=== PATIENT | male | born 1955 | race Caucasian/White ===

== ENCOUNTER 2022-02-25 13:42 | Observation (INO) ==
[2022-02-25 14:42] LABS: Basophils # (auto) 0.05 K/uL (0-0.2); Basophils % (auto) 0.7 %; Eosinophils # (auto) 0.06 K/uL (0-0.50); Eosinophils % (auto) 0.8 %; Hematocrit (blood only) 38.8 % (40.1-51.0); Hemoglobin 13.1 g/dl (14.0-18.0); Immature Granulocytes # (auto) 0.02 K/uL (0.00-0.02); Immature Granulocytes % (auto) 0.3 %; Lymphocytes # (auto) 2.31 K/uL (1.2-3.4); Lymphocytes % (auto) 32.4 %; Mean Corpuscular Hemoglobin 30.8 pg (25.0-34.0); Mean Corpuscular Hgb Conc 33.8 g/dL (32.0-36.0); Mean Corpuscular Volume 91.3 fL (80.0-100.0); Mean Platelet Volume 9.2 fL (9.4-12.4); Monocytes # (auto) 0.66 K/uL (0.24-0.82); Monocytes % (auto) 9.3 %; Neutrophils # (auto) 4.03 K/uL (1.4-6.5); Neutrophils % (auto) 56.5 %; Platelet Count 271 K/uL (130-400); RDW Coefficient of Variation 12.8 % (11.5-14.5); RDW Standard Deviation 42.4 fL (36.4-46.3); Red Blood Count 4.25 M/uL (4.63-6.08); White Blood Count 7.13 K/ul (4.8-10.8)
[2022-02-25 15:02] LABS: Troponin I High Sensitivity 3.9 pg/ml (0-20)
[2022-02-25 15:19] LABS: Albumin Globulin Ratio 1.6 (0.9-2); Albumin Level 4.6 gm/dl (3.4-5.0); BUN Creatinine Ratio 19.5 (10-20); Bilirubin,Total 0.6 mg/dl (0.2-1.0); Calcium 9.6 mg/dl (8.5-10.1); Creatinine Clr Calc Pharmacy 56.4 ml/min; Est GFR (Non-African American) 60.4 ml/min; Globulin 2.9 gm/dl (2.5-4.0); Magnesium 2.1 mg/dl (1.7-2.4); Potassium 3.8 mmol/L (3.5-5.1); Total Protein 7.5 gm/dl (6.0-8.3)
[2022-02-25 15:29] LABS: Influenza A virus by PCR Negative (Neg); Influenza B virus by PCR Negative (Neg); RSV by PCR Negative (Neg); SARS CoV2 RNA(COVID-19) InHosp NEGATIVE (Negative)
--- NOTE | 2022-02-25 16:27 | XRay Report ---
XR chest 1V portable HISTORY: Tachycardia. Atypical COMPARISON: Chest 03/19/2015. FINDINGS: The lungs are clear. Cardiac silhouette is normal in size. No pleural effusions. No pneumot horax. IMPRESSION: No acute process. ACT 112: Negative or not required by law. Electronically signed by: Scottie Sylvester M.D. 02/25/2022 4:26 PM
--- NOTE | 2022-02-25 18:48 | Emergency Department Note ---
Impression & Plan Tachyarrhythmia, Acute hypotension, Retrosternal chest pain ED Provider Note INFORMANT: Patient ED PROVIDER(S): Refugio De Leon MD CHIEF COMPLAINT: Chest pain PLAN: Disposition: Admitted Condition: None Outpatient prescription management: none Referral: None MEDICAL DECISION MAKING: Patient presented emergency department and he was noted to have a heart rate between 180 and 190 in triage. He also had blood pressure in the 80s. He was taken immediately back to the resuscitation bay. In the process of being hooked up to the cafeteria monitor as well as an ECG and IV was started. The patient was noted to spontaneously break into a sinus rhythm. Nursing noted that it appeared to be narrow complex but no recorded strips were obtained. The patient's chest discomfort resolved and his blood pressure returned to the normal range. I did evaluate the patient and he was feeling much better. His ECG did show a sinus rhythm. His CBC and chemistry panel along with troponin were unremarkable except for a minimal elevation of glucose. I did discuss the case with Dr. Phillips of cardiology. He felt the patient would warrant a cardiac evaluation and rule out in the hospital overnight. [facility] The patient was evaluated by the team the ER and admitted for further management. Triage Nursing notes reviewed and agree them. Vital Signs: reviewed and remarkable for tachycardia Differential diagnosis: Premature contractions, electrolyte abnormality, cardiac dysrhythmia, thyroid dysfunction, pulmonary embolism, infection, gastrointestinal, as well as other pathologies. Diagnostics interpreted by me: ECG: Lead ECG reveals sinus rhythm with sinus arrhythmia and PVCs at 81 bpm. Incomplete right bundle block block. No ST elevation or depression. Cardiac Monitoring: Cardiac monitoring ordered by me: The patient was placed on continuous cardiac monitoring and observed. It revealed a normal sinus rhythm at 84 beats per minute without ectopy or evidence of dysrhythmia. Imaging studies: Chest x-ray. Findings: A chest x-ray was performed and revealed no pneumothorax, effusion, infiltrate, pulmonary edema, free air under the diaphragm, or wide mediastinum. Impression: No acute disease. HPI: The patient is a 66 year old male who presents to the Emergency Room with complaints of chest pain. This started about an hour ago and is persisting. The patient also notes the following associated symptoms, tachycardia. The patient has taken no medication for relieving factors. Current pain is rated as 3/10. Patient notes 2 or 3 episodes in the past 2 years of tachycardia that resolved on their own. He states this episode was not resolving and he came to the ER for further management. States he was in good health this morning. Pt denies LOC, headache, fevers, chills, diaphoresis, visual changes, neck pain, breathing difficulties, nausea, vomiting, abdominal pain, back pain, melena, hematochezia, urinary symptoms, numbness, weakness, lymphadenopathy, rash, or other complaints. ROS: See above HPI for pertinent positives & negatives. A total of 10 systems reviewed and were otherwise negative. PAST MEDICAL HISTORY:See Below , Parkinson's PAST SURGICAL HISTORY:See Below, FAMILY HISTORY:See Below SOCIAL HISTORY:See Below, HOME MEDICATIONS:See Below ALLERGIES:See Below VITALS:See Below PHYSICAL EXAMINATION: GENERAL: Awake, alert, well-appearing, in no distress HENT: Normocephalic, atraumatic. Oropharynx unremarkable. EYES: Normal conjunctiva. Sclera non-icteric. NECK: Inspection normal. Non-tender. Supple. No nuchal rigidity. FROM. No masses. RESPIRATORY: Clear to auscultation. No wheezes. No rales. Normal respiratory effort. CARDIAC: Normal rate. Normal rhythm. No murmurs. No rubs. Extremities warm and well perfused. Pulses equal. No JVD. GI: Soft, non-distended. No tenderness to palpation. No rebound or guarding. No masses. RECTAL: Deferred. MUSCULOSKELETAL: Atraumatic. Chest examination reveals no tenderness. The back is symmetrical on inspection without obvious abnormality. There is no CVA tenderness to palpation. No joint edema. LOWER EXTREMITIES: Calves are equal size bilaterally and non-tender. No edema. No discoloration. NEURO: Normal sensorium. No sensory or motor deficits noted. SKIN: No rash or jaundice noted. Refugio De Leon MD Past Med/Surg History Medical History (Updated 02/25/22 @ 19:16 by Loren Herrera PA-C) Parkinson disease Surgical History (Updated 02/25/22 @ 19:03 by Loren Herrera PA-C) History of colonoscopy History of total knee arthroplasty bilateral Family History (Updated 02/25/22 @ 19:04 by Loren Herrera PA-C) Sister Von Willebrand disease Social History (Updated 02/25/22 @ 19:05 by Loren Herrera PA-C) Smoking Status: Never smoker Hx Alcohol Use: No Hx Substance Use: No Preferred Language: Uzbek Communication Ability: Effective Conical Mixer Required: No Current Living Situation: Spouse Feels Safe at Home: Yes Assistive Devices: None Allergies Allergies Allergy/AdvReac Type Severity Reaction Status Date / Time bee venom protein (honey bee) Allergy Unknown SWELLING Verified 04/20/16 10:40 No Known Drug Allergies Allergy Unknown NKDA Verified 04/20/16 10:40 Home Meds Home Medications Medication Instructions Recorded Confirmed carbidopa 25 mg-levodopa 100 1 tab PO TID 02/25/22 02/25/22 mg-entacapone 200 mg tablet cholecalciferol (vitamin D3) 50 2,000 unit PO DAILY 02/25/22 02/25/22 mcg (2,000 unit) capsule (Vitamin D3) magnesium oxide 400 mg PO DAILY 02/25/22 02/25/22 rasagiline 1 mg tablet 1 mg PO DAILY 02/25/22 02/25/22 riboflavin (vitamin B2) 400 mg 400 mg PO DAILY 02/25/22 02/25/22 tablet Results & Data (ED) Vital Signs Vital Signs - 24 hr 02/25/22 13:42 02/25/22 13:53 02/25/22 13:54 Temperature 36.8 C Temperature Source Temporal Artery Scan Pulse Rate 197 H Pulse Rate [Apical] 94 H Pulse Rhythm [Apical] Pulse Strength [Apical] Respiratory Rate 20 22 Respiratory Effort / Characteristics Non-Labored Respiratory Depth Normal Respiratory Pattern Blood Pressure 77/56 L Blood Pressure [Left Arm] 157/94 H Blood Pressure Mean 63 Blood Pressure Mean [Left Arm] 115 Pulse Oximetry 98 98 99 Oxygen Delivery Method Room Air Room Air Room Air Sepsis Recent Fever Within 48 Hours No Sepsis New/Unexplained Change in Mental Status N/A Sepsis Action Taken by Nursing No Action Required 02/25/22 14:14 02/25/22 16:00 02/25/22 17:42 Temperature Temperature Source Pulse Rate Pulse Rate [Apical] 96 H 85 60 Pulse Rhythm [Apical] Regular Pulse Strength [Apical] Normal Respiratory Rate 17 18 16 Respiratory Effort / Characteristics Non-Labored Non-Labored Non-Labored Respiratory Depth Normal Normal Respiratory Pattern Regular Regular Blood Pressure Blood Pressure [Left Arm] 119/75 118/76 128/74 Blood Pressure Mean Blood Pressure Mean [Left Arm] 89 90 92 Pulse Oximetry 100 98 100 Oxygen Delivery Method Room Air Room Air Room Air Sepsis Recent Fever Within 48 Hours Sepsis New/Unexplained Change in Mental Status Sepsis Action Taken by Nursing Laboratory Data Result diagrams: 02/25/22 14:00 02/25/22 14:00 Lab Results 02/25/22 02/25/22 02/25/22 Range/Units 14:00 14:00 14:00 WBC 7.13 (4.8-10.8) K/ul RBC 4.25 L (4.63-6.08) M/uL Hgb 13.1 L (14.0-18.0) g/dl Hct 38.8 L (40.1-51.0) % MCV 91.3 (80.0-100.0) fL MCH 30.8 (25.0-34.0) pg MCHC 33.8 (32.0-36.0) g/dL RDW Std Deviation 42.4 (36.4-46.3) fL RDW Coeff of Najma 12.8 (11.5-14.5) % Plt Count 271 (130-400) K/uL MPV 9.2 L (9.4-12.4) fL Immature Gran % (Auto) 0.3 % Neut % (Auto) 56.5 % Lymph % (Auto) 32.4 % Hardin % (Auto) 9.3 % Eos % (Auto) 0.8 % Baso % (Auto) 0.7 % Neut # (Auto) 4.03 (1.4-6.5) K/uL Lymph # (Auto) 2.31 (1.2-3.4) K/uL Hardin # (Auto) 0.66 (0.24-0.82) K/uL Eos # (Auto) 0.06 (0-0.50) K/uL Baso # (Auto) 0.05 (0-0.2) K/uL Immature Gran # (Auto) 0.02 (0.00-0.02) K/uL Sodium 137 (136-145) mmol/L Potassium 3.8 (3.5-5.1) mmol/L Chloride 101 (98-107) mmol/L Carbon Dioxide 27 (21-32) mmol/L Anion Gap 9 (3-11) BUN 24 H (6-23) mg/dl Creatinine 1.23 (0.6-1.4) mg/dl Est Cr Clr Drug Dosing 56.4 ml/min Est GFR ( Amer) 70.0 ml/min Est GFR (Non-Af Amer) 60.4 ml/min BUN/Creatinine Ratio 19.5 (10-20) Glucose 201 H (70-99(Fasting)) mg/dl Calcium 9.6 (8.5-10.1) mg/dl Magnesium 2.1 (1.7-2.4) mg/dl Total Bilirubin 0.6 (0.2-1.0) mg/dl AST 26 (13-39) U/L ALT 5 L (7-52) U/L Alkaline Phosphatase 126 H (34-104) U/L Troponin I High Sens 3.9 (0-20) pg/ml Total Protein 7.5 (6.0-8.3) gm/dl Albumin 4.6 (3.4-5.0) gm/dl Globulin 2.9 (2.5-4.0) gm/dl Albumin/Globulin Ratio 1.6 (0.9-2) TSH 3.698 (0.300-4.500) uIu/ml SARS-CoV-2 (PCR) (Negative) Influenza Type A (PCR) (Neg) Influenza Type B (PCR) (Neg) RSV (RT-PCR) (Neg) 02/25/22 Range/Units 14:28 WBC (4.8-10.8) K/ul RBC (4.63-6.08) M/uL Hgb (14.0-18.0) g/dl Hct (40.1-51.0) % MCV (80.0-100.0) fL MCH (25.0-34.0) pg MCHC (32.0-36.0) g/dL RDW Std Deviation (36.4-46.3) fL RDW Coeff of Najma (11.5-14.5) % Plt Count (130-400) K/uL MPV (9.4-12.4) fL Immature Gran % (Auto) % Neut % (Auto) % Lymph % (Auto) % Hardin % (Auto) % Eos % (Auto) % Baso % (Auto) % Neut # (Auto) (1.4-6.5) K/uL Lymph # (Auto) (1.2-3.4) K/uL Hardin # (Auto) (0.24-0.82) K/uL Eos # (Auto) (0-0.50) K/uL Baso # (Auto) (0-0.2) K/uL Immature Gran # (Auto) (0.00-0.02) K/uL Sodium (136-145) mmol/L Potassium (3.5-5.1) mmol/L Chloride (98-107) mmol/L Carbon Dioxide (21-32) mmol/L Anion Gap (3-11) BUN (6-23) mg/dl Creatinine (0.6-1.4) mg/dl Est Cr Clr Drug Dosing ml/min Est GFR ( Amer) ml/min Est GFR (Non-Af Amer) ml/min BUN/Creatinine Ratio (10-20) Glucose (70-99(Fasting)) mg/dl Calcium (8.5-10.1) mg/dl Magnesium (1.7-2.4) mg/dl Total Bilirubin (0.2-1.0) mg/dl AST (13-39) U/L ALT (7-52) U/L Alkaline Phosphatase (34-104) U/L Troponin I High Sens (0-20) pg/ml Total Protein (6.0-8.3) gm/dl Albumin (3.4-5.0) gm/dl Globulin (2.5-4.0) gm/dl Albumin/Globulin Ratio (0.9-2) TSH (0.300-4.500) uIu/ml SARS-CoV-2 (PCR) NEGATIVE (Negative) Influenza Type A (PCR) Negative (Neg) Influenza Type B (PCR) Negative (Neg) RSV (RT-PCR) Negative (Neg) Administered Medications Discontinued Medications Potassium Chloride (Potassium Chloride Crtab 20 Meq Tabcr) 20 meq PO NOW STA Stop: 02/25/22 18:59 Last Admin: 02/25/22 19:24 Dose: 20 meq Documented By: JOANN Imaging Data Radiologist's Impression: Chest X-Ray 02/25/22 15:41 XR chest 1V portable HISTORY: Tachycardia. Atypical COMPARISON: Chest 03/19/2015. FINDINGS: The lungs are clear. Cardiac silhouette is normal in size. No pleural effusions. No pneumothorax. IMPRESSION: No acute process. ACT 112: Negative or not required by law. Electronically signed by: Scottie Sylvester M.D. 02/25/2022 4:26 PM Discharge Plan Visit Data Chief Complaint: Chest Pain Stated Complaint: CHEST PAINS, DIZZINESS ED Provider: Refugio De Leon Discharge Problem: Tachyarrhythmia, Acute hypotension, Retrosternal chest pain Patient Disposition: Admitted As Inpatient Discharge Instructions Interventions: ED Discharge Assessment Last Done: 02/25/22 21:18
--- NOTE | 2022-02-25 18:57 | History & Physical Report ---
Date of Service February 25, 2022 Assessment & Plan (1) Tachyarrhythmia: (2) Retrosternal chest pain: Plan: Patient is 66 y/o M with PMH Parkinson's presented to ER with c/o CP, dizziness started 1:00PM today after exertion. Upon arrival to ER HR between 180-190 with SBP in 70's. It is reported appeared to be in narrow complex tachycardia and in process of being placed on monitor he was having saline lock placed and he converted to sinus rhythm with resolution of symptoms. No significant electrolyte abnormality, TSH WNL, Negative COVID, influenza, RSV DDX: Afib RVR, SVT Monitor on tele Repeat EKG in am Trend troponin Echo Cardiology consult If no arrhythmias detected during hospital course, may need to consider outpatient engine monitor (3) Hyperglycemia: Plan: random glucose: 201 A1c in am (4) Parkinson disease: Plan: Continue [id number], Azilect DVT Prophylaxis Lovenox SQ Full Code as per discussion with pt Follows with Dr Stephane Mabry for routine care Pt was seen and care coordinated with Dr Meehan. See addendum History of Present Illness Chief Complaint: CP Primary Care Provider: Stephane Mabry DO Patient is 66 y/o M with PMH Parkinson's presented to ER with c/o CP, dizziness started 1:00PM today. He denies noticing any palpitations or heart racing. He was outside working when symptoms began and states he was hot and sweaty from being outside. Denies syncope, SOB. He states past couple of days had nasal congestion, mild clear productive cough. Denies fever/chills. His has been around grandchild who has RSV. Patient reports 2 prior short episodes of dizziness and chest pain. One occurred in 2019 after carrying groceries up 30 steps. Another episode last year that was not related with exertion. FH -mother and brother with tachycardia, thinks may be atrial fibrillation. Denies fever/chills, N/V/D/C, RAYMUNDO, vision changes, neck pain, SOB, orthopnea, sore throat, choking, otalgia, abdominal pain, paresthesias, weakness, extremity weakness, extremity edema, rashes, urinary symptoms. Upon arrival to ER HR between 180-190 with SBP in 70's. It is reported appeared to be in narrow complex tachycardia and in process of being placed on monitor he was having saline lock placed and he converted to sinus rhythm with resolution of symptoms. Allergies Allergy/AdvReac Type Severity Reaction Status Date / Time bee venom protein (honey bee) Allergy Unknown SWELLING Verified 04/20/16 10:40 No Known Drug Allergies Allergy Unknown NKDA Verified 04/20/16 10:40 Home Medications Medication Instructions Recorded Confirmed Type carbidopa 25 mg-levodopa 100 1 tab PO TID 02/25/22 02/25/22 History mg-entacapone 200 mg tablet cholecalciferol (vitamin D3) 50 2,000 unit PO DAILY 02/25/22 02/25/22 History mcg (2,000 unit) capsule (Vitamin D3) magnesium oxide 400 mg PO DAILY 02/25/22 02/25/22 History rasagiline 1 mg tablet 1 mg PO DAILY 02/25/22 02/25/22 History riboflavin (vitamin B2) 400 mg 400 mg PO DAILY 02/25/22 02/25/22 History tablet Past Med/Surg History Medical History (Updated 02/25/22 @ 19:16 by Loren Herrera PA-C) Parkinson disease Surgical History (Updated 02/25/22 @ 19:03 by Loren Herrera PA-C) History of colonoscopy History of total knee arthroplasty bilateral Family History (Updated 02/25/22 @ 19:04 by Loren Herrera PA-C) Sister Von Willebrand disease Social History (Updated 02/25/22 @ 19:05 by Loren Herrera PA-C) Smoking Status: Never smoker Hx Alcohol Use: No Hx Substance Use: No Preferred Language: Swedish Feels Safe at Home: Yes Review of Systems Review of Systems: All systems reviewed & are unremarkable except as noted in HPI & below Physical Exam Physical Exam: General: no distress, WDWN Head: normocephalic, atraumatic Eyes: conjunctiva non-injected, anicteric ENT: normal inspection external ears, nose, mucous membranes moist Neck: supple, trachea midline Lungs: clear, no respiratory distress, no wheezing/rhonchi/rales CV: RRR, no murmur, no pretibial edema Abd: normal BS, soft, non-tender Ext: no cyanosis, no calf tenderness Neuro: A&O x 3, no focal deficits noted, normal affect Skin: warm, dry Results & Data Results & Data ([facility]) Vital Signs (Past 12 Hours) Vital Signs Temp Pulse Pulse Resp BP BP Pulse Ox 02/25/22 17:42 60 16 128/74 100 02/25/22 16:00 85 18 118/76 98 02/25/22 14:14 96 H 17 119/75 100 02/25/22 13:54 94 H 22 157/94 H 99 02/25/22 13:53 98 02/25/22 13:42 36.8 C 197 H 20 77/56 L 98 O2 Del Method 02/25/22 17:42 Room Air 02/25/22 16:00 Room Air 02/25/22 14:14 Room Air 02/25/22 13:54 Room Air 02/25/22 13:53 Room Air 02/25/22 13:42 Room Air Laboratory Results Short CBC 02/25/22 Range/Units 14:00 WBC 7.13 (4.8-10.8) K/ul Hgb 13.1 L (14.0-18.0) g/dl Hct 38.8 L (40.1-51.0) % Plt Count 271 (130-400) K/uL BMP 02/25/22 14:00 Sodium 137 Potassium 3.8 Chloride 101 Carbon Dioxide 27 BUN 24 H Creatinine 1.23 Glucose 201 H Calcium 9.6 Liver Function 02/25/22 Range/Units 14:00 Total Bilirubin 0.6 (0.2-1.0) mg/dl AST 26 (13-39) U/L ALT 5 L (7-52) U/L Alkaline Phosphatase 126 H (34-104) U/L Albumin 4.6 (3.4-5.0) gm/dl Diagnostic Findings Chest X-Ray 02/25/22 15:41 XR chest 1V portable HISTORY: Tachycardia. Atypical COMPARISON: Chest 03/19/2015. FINDINGS: The lungs are clear. Cardiac silhouette is normal in size. No pleural effusions. No pneumothorax. IMPRESSION: No acute process. ACT 112: Negative or not required by law. Electronically signed by: Scottie Sylvester M.D. 02/25/2022 4:26 PM Code Status & VTE Plan VTE Prophylaxis Plan VTE Prophylaxis will be ordered: Yes Supervising Physician Co-Signing Physician Notes 66-year-old male with PMH of Parkinson's presented to the ED with complaint of chest heaviness/dizziness/shortness of breath that started around 1 PM today during walking. Patient reports having similar symptoms 2 times in the past, last 1 being last year. In the ED he was noted to have heart rate between 180- 190 [likely narrow complex tachycardia per ED doctor] with SBP in 70s, patient c onverted to sinus rhythm with venipuncture in the ED. Admitting troponin WNL, get EKG. Telemetry monitoring. Labs reviewed, fairly WNL, glucose elevated, get A1c in the morning. Echo, trend troponin, cardiology consult. Continue home meds as appropriate. Upon examination: GENERAL: Alert and oriented x3. NAD, on RA. HEENT: No pallor, no icterus. Pupils equal, round and reactive to light. Oral mucosa moist. NECK: No JVD, no neck masses. HEART: S1 and S2 heard. Regular rate and rhythm. No murmur, no gallop. RESPIRATORY SYSTEM: Normal AP diameter. No accessory muscle use. No wheezing, no crackles. ABDOMEN: Soft, bowel sounds present, nontender, no distention. CENTRAL NERVOUS SYSTEM: No facial droop. Speech is clear. Obeys simple commands. Moves extremities. EXTREMITIES: No edema, no erythema seen. b/l healed knee scar. I have seen and examined the patient and have discussed the case with the provider above. I agree with the assessment and plan as stated.
[2022-02-25] MEDS ORDERED: POTASSIUM CHLORIDE CRTAB 20 MEQ TABCR PO STA (18:58)
[2022-02-25] MEDS ORDERED: POLYETHYLENE (MIRALAX) 17 GM PACK PO PRN (21:17)
[2022-02-25] MEDS ORDERED: ENOXAPARIN INJ 40 MG/0.4 ML SYR SQ SCH (21:17)
[2022-02-25] MEDS ORDERED: ACETAMINOPHEN 325 MG TAB PO PRN (21:17)
[2022-02-25] MEDS: ENTACAPONE 200 MG TAB PO SCH (21:56)
[2022-02-25] MEDS: CARBIDOPA/LEVODOPA 25/100MG TAB PO SCH (21:56)
[2022-02-26 03:39] LABS: Hematocrit (blood only) 36.7 % (40.1-51.0); Hemoglobin 12.5 g/dl (14.0-18.0); Mean Corpuscular Hemoglobin 30.7 pg (25.0-34.0); Mean Corpuscular Hgb Conc 34.1 g/dL (32.0-36.0); Mean Corpuscular Volume 90.2 fL (80.0-100.0); Mean Platelet Volume 8.7 fL (9.4-12.4); Platelet Count 245 K/uL (130-400); RDW Coefficient of Variation 12.7 % (11.5-14.5); RDW Standard Deviation 42.1 fL (36.4-46.3); Red Blood Count 4.07 M/uL (4.63-6.08)
[2022-02-26 03:58] LABS: Calcium 8.8 mg/dl (8.5-10.1); Chol HDL Ratio 2.8 (0-5); Creatinine Clr Calc Pharmacy 68.8 ml/min; Est GFR (African American) 89.9 ml/min; Est GFR (Non-African American) 77.5 ml/min; Potassium 4.3 mmol/L (3.5-5.1)
[2022-02-26 08:00] LABS: Estimated Average Glucose 120 mg/dl; Hemoglobin A1C 5.8 % (4.5-5.6)
[2022-02-26] MEDS: ENTACAPONE 200 MG TAB PO SCH ×2 (08:04→12:51)
[2022-02-26] MEDS: CARBIDOPA/LEVODOPA 25/100MG TAB PO SCH ×2 (08:04→12:51)
[2022-02-26] MEDS ORDERED: MAGNESIUM OXIDE 400 MG TAB PO SCH (09:00)
[2022-02-26] MEDS ORDERED: CHOLECALCIFEROL 1,000 UNITS 25 MCG TAB PO SCH (09:00)
[2022-02-26] MEDS ORDERED: NON-FORMULARY MEDICATION (Riboflavin (Vitamin B2) 400 mg Tablet) PO SCH (09:00)
[2022-02-26] MEDS ORDERED: ASPIRIN 81 MG ECTAB PO SCH (11:45)
--- NOTE | 2022-02-26 11:45 | Cardiology Consultation ---
Date of Consultation February 26, 2022 Assessment & Plan (1) Parkinson disease: (2) Tachyarrhythmia: Plan I think the patient can be discharged to outpatient follow-up. Unfortunately, we did not have telemetry during his arrhythmia. It is an SVT. It could be paroxysmal atrial fibrillation. He is not having frequent episodes. We can work him up as an outpatient. He will have a ZIO monitor and a follow-up visit with us. I would start him on aspirin 81 mg daily. I think the risk versus benefit of anticoagulating him would favor aspirin at this time. We do not exactly know what the SVT is plus he is a fall risk from his Parkinson's disease with orthostasis. His a blood pressure tends to run on the low side and he is bradycardic and therefore I would not recommend starting him on a beta-deborah at this time as I think we would cause his orthostasis to be worse and he would potentially have syncopal episodes. I will arrange follow-up through our clinic and a monitor as an outpatient. History of Present Illness Attending Physician: Lesley Hinkle MD History of Present Illness This is a 66-year-old male patient with no prior history of heart disease. About a year ago he was diagnosed with Parkinson's disease. He presented to the hospital with chest discomfort and a racing heart. Prior to placing the patient on a monitor for getting an EKG he was having an IV placed and he converted back to his normal sinus rhythm. There are no EKG or monitor strips available for the SVT. Patient states that in 2019 he had a very brief episode after walking up a flight of stairs that spontaneously resolved. He had another episode last year of a racing heart that lasted only a brief time and then spontaneously resolved. He has had no additional episodes until yesterday. On the telemetry today he is in a normal sinus rhythm and has had no additional arrhythmias. Echocardiogram obtained this admission is unremarkable. Cardiac markers this admission are negative. His EKG after admission reveals a sinus rhythm and is normal. He has no ongoing complaints. Allergies Allergy/AdvReac Type Severity Reaction Status Date / Time bee venom protein (honey bee) Allergy Unknown SWELLING Verified 04/20/16 10:40 No Known Drug Allergies Allergy Unknown NKDA Verified 04/20/16 10:40 Home Medications Medication Instructions Recorded Confirmed Type carbidopa 25 mg-levodopa 100 1 tab PO TID 09/02/22 09/02/22 History mg-entacapone 200 mg tablet cholecalciferol (vitamin D3) 50 2,000 unit PO DAILY 02/25/22 02/25/22 History mcg (2,000 unit) capsule (Vitamin D3) magnesium oxide 400 mg PO DAILY 02/25/22 02/25/22 History rasagiline 1 mg tablet 1 mg PO DAILY 02/25/22 02/25/22 History riboflavin (vitamin B2) 400 mg 400 mg PO DAILY 02/25/22 02/25/22 History tablet Patient History Medical History Parkinson disease Surgical History History of colonoscopy History of total knee arthroplasty bilateral Family History Sister Von Willebrand disease Social History Smoking Status: Never smoker Hx Alcohol Use: No Hx Substance Use: No Preferred Language: German Communication Ability: Effective 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 All other 10 point review of systems are negative. Physical Exam Physical Exam: General: no acute distress and stated age Head: normocephalic, no masses, lesions, tenderness or abnormalities Eyes: conjunctiva are pink and non-injected, sclera clear Neck: supple, no adenopathy, no bruits, normal jugular venous pulse, no hepatojugular reflux Chest: normal shape and normal respiratory effort Lungs: clear to auscultation and percussion Cardiac Exam: - regular rate & rhythm, no murmurs gallops or rubs - normal S1, normal S2 Pulses: 2(+) throughout Abdomen: abdomen soft, non-tender, no abnormal masses and no hepatosplenomegaly Musculoskeletal: no gait disturbance, no joint inflammation, no deforming arthritis Extremities: no edema and no cyanosis Neuro: grossly normal exam Results & Data ([facility]) Vital Signs (Past 12 Hours) Vital Signs Temp Pulse Pulse Resp BP Pulse Ox O2 Del Method 02/26/22 11:40 36.5 C 75 18 114/68 96 Room Air 02/26/22 07:16 61 02/26/22 03:57 36.5 C 60 18 128/76 98 Room Air 02/26/22 00:21 70 Laboratory Results Laboratory Results - last 24 hr 02/25/22 02/25/22 02/25/22 14:00 14:00 14:00 WBC 7.13 RBC 4.25 L Hgb 13.1 L Hct 38.8 L MCV 91.3 MCH 30.8 MCHC 33.8 RDW Std Deviation 42.4 RDW Coeff of Najma 12.8 Plt Count 271 MPV 9.2 L Immature Gran % (Auto) 0.3 Neut % (Auto) 56.5 Lymph % (Auto) 32.4 Garrett % (Auto) 9.3 Eos % (Auto) 0.8 Baso % (Auto) 0.7 Neut # (Auto) 4.03 Lymph # (Auto) 2.31 Garrett # (Auto) 0.66 Eos # (Auto) 0.06 Baso # (Auto) 0.05 Immature Gran # (Auto) 0.02 Sodium 137 Potassium 3.8 Chloride 101 Carbon Dioxide 27 Anion Gap 9 BUN 24 H Creatinine 1.23 Est Cr Clr Drug Dosing 56.4 Est GFR ( Amer) 70.0 Est GFR (Non-Af Amer) 60.4 BUN/Creatinine Ratio 19.5 Glucose 201 H POC Glucose Estimat Average Glucose Hemoglobin A1c Calcium 9.6 Magnesium 2.1 Total Bilirubin 0.6 AST 26 ALT 5 L Alkaline Phosphatase 126 H Troponin I High Sens 3.9 Total Protein 7.5 Albumin 4.6 Globulin 2.9 Albumin/Globulin Ratio 1.6 Triglycerides Cholesterol LDL Cholesterol, Calc VLDL Cholesterol, Calc HDL Cholesterol Cholesterol/HDL Ratio TSH 3.698 SARS-CoV-2 (PCR) Influenza Type A (PCR) Influenza Type B (PCR) RSV (RT-PCR) 02/25/22 02/25/22 02/26/22 14:28 21:28 03:28 WBC RBC Hgb Hct MCV MCH MCHC RDW Std Deviation RDW Coeff of Najma Plt Count MPV Immature Gran % (Auto) Neut % (Auto) Lymph % (Auto) Garrett % (Auto) Eos % (Auto) Baso % (Auto) Neut # (Auto) Lymph # (Auto) Garrett # (Auto) Eos # (Auto) Baso # (Auto) Immature Gran # (Auto) Sodium Potassium Chloride Carbon Dioxide Anion Gap BUN Creatinine Est Cr Clr Drug Dosing Est GFR ( Amer) Est GFR (Non-Af Amer) BUN/Creatinine Ratio Glucose POC Glucose Estimat Average Glucose Hemoglobin A1c Calcium Magnesium Total Bilirubin AST ALT Alkaline Phosphatase Troponin I High Sens 10.5 D 10.3 Total Protein Albumin Globulin Albumin/Globulin Ratio Triglycerides Cholesterol LDL Cholesterol, Calc VLDL Cholesterol, Calc HDL Cholesterol Cholesterol/HDL Ratio TSH SARS-CoV-2 (PCR) NEGATIVE Influenza Type A (PCR) Negative Influenza Type B (PCR) Negative RSV (RT-PCR) Negative 02/26/22 02/26/22 02/26/22 03:28 03:28 03:28 WBC 5.80 RBC 4.07 L Hgb 12.5 L Hct 36.7 L MCV 90.2 MCH 30.7 MCHC 34.1 RDW Std Deviation 42.1 RDW Coeff of Najma 12.7 Plt Count 245 MPV 8.7 L Immature Gran % (Auto) Neut % (Auto) Lymph % (Auto) Garrett % (Auto) Eos % (Auto) Baso % (Auto) Neut # (Auto) Lymph # (Auto) Garrett # (Auto) Eos # (Auto) Baso # (Auto) Immature Gran # (Auto) Sodium 138 Potassium 4.3 Chloride 104 Carbon Dioxide 30 Anion Gap 4 BUN 23 Creatinine 1.00 Est Cr Clr Drug Dosing 68.8 Est GFR ( Amer) 89.9 Est GFR (Non-Af Amer) 77.5 BUN/Creatinine Ratio 23.0 H Glucose 84 POC Glucose Estimat Average Glucose 120 Hemoglobin A1c 5.8 H Calcium 8.8 Magnesium Total Bilirubin AST ALT Alkaline Phosphatase Troponin I High Sens Total Protein Albumin Globulin Albumin/Globulin Ratio Triglycerides 100 Cholesterol 144 LDL Cholesterol, Calc 73 VLDL Cholesterol, Calc 20 HDL Cholesterol 51 Cholesterol/HDL Ratio 2.8 TSH SARS-CoV-2 (PCR) Influenza Type A (PCR) Influenza Type B (PCR) RSV (RT-PCR) 02/26/22 02/26/22 02/26/22 07:43 09:15 11:40 WBC RBC Hgb Hct MCV MCH MCHC RDW Std Deviation RDW Coeff of Najma Plt Count MPV Immature Gran % (Auto) Neut % (Auto) Lymph % (Auto) Garrett % (Auto) Eos % (Auto) Baso % (Auto) Neut # (Auto) Lymph # (Auto) Garrett # (Auto) Eos # (Auto) Baso # (Auto) Immature Gran # (Auto) Sodium Potassium Chloride Carbon Dioxide Anion Gap BUN Creatinine Est Cr Clr Drug Dosing Est GFR ( Amer) Est GFR (Non-Af Amer) BUN/Creatinine Ratio Glucose POC Glucose 114 H 134 H Estimat Average Glucose Hemoglobin A1c Calcium Magnesium Total Bilirubin AST ALT Alkaline Phosphatase Troponin I High Sens 6.3 D Total Protein Albumin Globulin Albumin/Globulin Ratio Triglycerides Cholesterol LDL Cholesterol, Calc VLDL Cholesterol, Calc HDL Cholesterol Cholesterol/HDL Ratio TSH SARS-CoV-2 (PCR) Influenza Type A (PCR) Influenza Type B (PCR) RSV (RT-PCR) Medications Administered Current Inpatient Medications Acetaminophen (Acetaminophen 325 Mg Tab) 650 mg PO Q4H PRN PRN Reason: Pain or Fever Stop: 03/27/22 21:16 Aspirin (Aspirin 81 Mg Ectab) 81 mg PO QAM [facility] Stop: 03/28/22 11:44 Carbidopa/Levodopa (Carbidopa/Levodopa 25/100mg Tab) 1 tab PO TID SUAD Stop: 03/27/22 20:59 Last Admin: 02/26/22 08:04 Dose: 1 tab Enoxaparin Sodium (Enoxaparin Inj 40 Mg/0.4 Ml Syr) 40 mg SQ Q24H SUAD Stop: 03/27/22 21:16 Last Admin: 02/25/22 22:02 Dose: 40 mg Entacapone (Entacapone 200 Mg Tab) 200 mg PO TID SUAD Stop: 03/27/22 20:59 Last Admin: 02/26/22 08:04 Dose: 200 mg Magnesium Oxide (Magnesium Oxide 400 Mg Tab) 400 mg PO DAILY SUAD Stop: 03/28/22 08:59 Last Admin: 02/26/22 08:04 Dose: 400 mg Miscellaneous (*Rasagiline*Order Awaiting Action) 1 each N/A QS SUAD Stop: 03/28/22 00:00 Last Admin: 02/26/22 07:21 Dose: Not Given Polyethylene Glycol (Polyethylene (Miralax) 17 Gm Pack) 17 gm PO DAILY PRN PRN Reason: Constipation Stop: 03/27/22 21:16 Vitamin D (Cholecalciferol 1,000 Units 25 Mcg Tab) 2,000 units PO DAILY SUAD Stop: 03/28/22 08:59 Last Admin: 02/26/22 08:04 Dose: 2,000 units
--- NOTE | 2022-02-26 12:13 | Hospitalist Progress Note ---
Date of Service February 26, 2022 Assessment & Plan (1) Tachyarrhythmia: (2) Retrosternal chest pain: Plan: Patient is 66 y/o M with PMH Parkinson's presented to ER with c/o CP, dizziness started 1:00PM today after exertion. Upon arrival to ER HR between 180-190 with SBP in 70's. It is reported appeared to be in narrow complex tachycardia and in process of being placed on monitor he was having saline lock placed and he converted to sinus rhythm with resolution of symptoms. No significant electrolyte abnormality, TSH WNL, Negative COVID, influenza, RSV DDX: Afib RVR, SVT Monitor on tele-did not show any significant arrhythmia Repeat EKG in am-normal sinus rhythm at a rate of 65/min Trend troponin-negative for any ACS Echo of the heart showed-normal LV size and systolic function with EF 60 to 65%, RV systolic function is normal, but the atria are normal in size, mild mitral regurgitation. Appreciate cardiology input and recommendation Will give aspirin 81 mg a day and no beta-deborah on discharge today He will have a Zio patch as an outpatient (3) Hyperglycemia: Plan: random glucose: 201 A1c in am (4) Parkinson disease: Plan: Continue [id number], Azilect DVT Prophylaxis Lovenox SQ Full Code as per discussion with pt Follows with Dr Stephane Mabry for routine care Pt was seen and care coordinated with Dr Meehan. See addendum Plan Discharge home today Admission and Anticipated Discharge Date Admission Date: February 25, 2022 Subjective 02/26/2022 The patient was seen and examined in medical telemetry unit He has had an episode of mild palpitation with dizziness prior to admission Does not have any symptoms as of this morning and since admission No significant arrhythmias and monitor except bradycardia at times without symptoms Review of Systems Review of Systems: All systems reviewed and are unremarkable except as noted below Cardiovascular: Additional Comments: No chest pain and/or palpitation Neurologic: No more dizziness Physical Exam Physical Exam: Lying in bed comfortably Constitutional: average body habitus; not ill appearing Eyes: PERRL, conjunctivae normal, anicteric sclerae ENMT: external ear and nose normal, oropharynx normal Neck: trachea midline, no thyromegaly Respiratory: no respiratory distress Auscultation: lungs clear to auscultation bilaterally Cardiovascular: Rate/Rhythm: regular rate and regular rhythm Heart Sounds: normal S1 and normal S2; no murmur Extremities: no edema Gastrointestinal (Abdomen): Inspection/Auscultation: normal bowel sounds; abdomen not distended Percussion/Palpation: abdomen soft; abdomen nontender Musculoskeletal: No acute arthritis in any joint Neurologic: Alert, awake and oriented x3. No focal sensory and motor deficit appreciated Psychiatric: A+Ox3, euthymic affect Lymphatic: no cervical or axillary lymphadenopathy Results & Data Results & Data ([facility]) Vital Signs (Past 12 Hours) Vital Signs Temp Pulse Pulse Resp BP Pulse Ox O2 Del Method 02/26/22 11:40 36.5 C 75 18 114/68 96 Room Air 02/26/22 07:16 61 02/26/22 03:57 36.5 C 60 18 128/76 98 Room Air 02/26/22 00:21 70 Laboratory Results Short CBC 02/25/22 02/26/22 Range/Units 14:00 03:28 WBC 7.13 5.80 (4.8-10.8) K/ul Hgb 13.1 L 12.5 L (14.0-18.0) g/dl Hct 38.8 L 36.7 L (40.1-51.0) % Plt Count 271 245 (130-400) K/uL [facility] 02/25/22 02/26/22 14:00 03:28 Sodium 137 138 Potassium 3.8 4.3 Chloride 101 104 Carbon Dioxide 27 30 BUN 24 H 23 Creatinine 1.23 1.00 Glucose 201 H 84 Calcium 9.6 8.8 Liver Function 02/25/22 Range/Units 14:00 Total Bilirubin 0.6 (0.2-1.0) mg/dl AST 26 (13-39) U/L ALT 5 L (7-52) U/L Alkaline Phosphatase 126 H (34-104) U/L Albumin 4.6 (3.4-5.0) gm/dl Medications Administered Current Inpatient Medications Acetaminophen (Acetaminophen 325 Mg Tab) 650 mg PO Q4H PRN PRN Reason: Pain or Fever Stop: 03/27/22 21:16 Aspirin (Aspirin 81 Mg Ectab) [facility] [place] Stop: 03/28/22 11:44 Last Admin: 02/26/22 12:05 Dose: 81 mg Carbidopa/Levodopa (Carbidopa/Levodopa 25/100mg Tab) 1 tab PO TID SUAD Stop: 03/27/22 20:59 Last Admin: 02/26/22 08:04 Dose: 1 tab Enoxaparin Sodium (Enoxaparin Inj 40 Mg/0.4 Ml Syr) 40 mg SQ Q24H SUAD Stop: 03/27/22 21:16 Last Admin: 02/25/22 22:02 Dose: 40 mg Entacapone (Entacapone 200 Mg Tab) 200 mg PO TID SUAD Stop: 03/27/22 20:59 Last Admin: 02/26/22 08:04 Dose: 200 mg Magnesium Oxide (Magnesium Oxide 400 Mg Tab) 400 mg PO DAILY SUAD Stop: 03/28/22 08:59 Last Admin: 02/26/22 08:04 Dose: 400 mg Miscellaneous (*Rasagiline*Order Awaiting Action) 1 each N/A QS SUAD Stop: 03/28/22 00:00 Last Admin: 02/26/22 07:21 Dose: Not Given Polyethylene Glycol (Polyethylene (Miralax) 17 Gm Pack) 17 gm PO DAILY PRN PRN Reason: Constipation Stop: 03/27/22 21:16 Vitamin D (Cholecalciferol 1,000 Units 25 Mcg Tab) 2,000 units PO DAILY SUAD Stop: 03/28/22 08:59 Last Admin: 02/26/22 08:04 Dose: 2,000 units
--- NOTE | 2022-02-26 13:03 | Electrocardiogram Report ---
Test Reason : Blood Pressure : / mmHG Vent. Rate : 065 BPM Atrial Rate : 065 BPM P-R Int : 154 ms QRS Dur : 090 ms QT Int : 450 ms P-R-T Axes : 075 014 064 degrees QTc Int : 468 ms Normal sinus rhythm with sinus arrhythmia Normal ECG When compared with ECG of 25-FEB-2022 13:50, (unconfirmed) Premature ventricular complexes are no longer Present QT has lengthened Confirmed by Weston Davis ([id number]) on 02/26/2022 1:03:33 PM Referred By: REFERRED SELF Confirmed By:Urban Davis
--- NOTE | 2022-02-26 13:07 | Electrocardiogram Report ---
Test Reason : Blood Pressure : / mmHG Vent. Rate : 081 BPM Atrial Rate : 094 BPM P-R Int : 158 ms QRS Dur : 092 ms QT Int : 324 ms P-R-T Axes : 083 050 073 degrees QTc Int : 376 ms Sinus rhythm with marked sinus arrhythmia with occasional , and consecutive Premature ventricular com plexes Incomplete right bundle branch block Abnormal ECG When compared with ECG of 21-MAR-2016 09:46, Premature ventricular complexes are now Present Confirmed by Weston Davis ([id number]) on 02/26/2022 1:06:49 PM Referred By: REFERRED SELF Confirmed By:Urban Davis
--- NOTE | 2022-03-05 15:04 | Discharge Summary ---
Date of Service February 26, 2022 Admission HPI Per Admitting Provider Patient is 66 y/o M with PMH Parkinson's presented to ER with c/o CP, dizziness started 1:00PM today. He denies noticing any palpitations or heart racing. He was outside working when symptoms began and states he was hot and sweaty from being outside. Denies syncope, SOB. He states past couple of days had nasal congestion, mild clear productive cough. Denies fever/chills. His has been around grandchild who has RSV. Patient reports 2 prior short episodes of dizziness and chest pain. One occurred in 2019 after carrying groceries up 30 steps. Another episode last year that was not related with exertion. FH -mother and brother with tachycardia, thinks may be atrial fibrillation. Denies fever/chills, N/V/D/C, RAYMUNDO, vision changes, neck pain, SOB, orthopnea, sore throat, choking, otalgia, abdominal pain, paresthesias, weakness, extremity weakness, extremity edema, rashes, urinary symptoms. Upon arrival to ER HR between 180-190 with SBP in 70's. It is reported appeared to be in narrow complex tachycardia and in process of being placed on monitor he was having saline lock placed and he converted to sinus rhythm with resolution of symptoms. Admission Exam Per Admitting Provider Physical Exam: General: no distress, WDWN Head: normocephalic, atraumatic Eyes: conjunctiva non-injected, anicteric ENT: normal inspection external ears, nose, mucous membranes moist Neck: supple, trachea midline Lungs: clear, no respiratory distress, no wheezing/rhonchi/rales CV: RRR, no murmur, no pretibial edema Abd: normal BS, soft, non-tender Ext: no cyanosis, no calf tenderness Neuro: A&O x 3, no focal deficits noted, normal affect Skin: warm, dry Principal Diagnosis Tachyarrhythmia, chest pain-no ACS, Parkinson's disease Discharge Exam Lying in bed comfortably Constitutional average body habitus; not ill appearing Eyes PERRL, conjunctivae normal, anicteric sclerae ENMT external ear and nose normal, oropharynx normal Neck trachea midline, no thyromegaly Respiratory no respiratory distress Auscultation: lungs clear to auscultation bilaterally Cardiovascular Rate/Rhythm: regular rate and regular rhythm Heart Sounds: normal S1 and normal S2; no murmur Extremities: no edema Gastrointestinal (Abdomen) Inspection/Auscultation: normal bowel sounds; abdomen not distended Percussion/Palpation: abdomen soft; abdomen nontender Psychiatric A+Ox3, euthymic affect Lymphatic no cervical or axillary lymphadenopathy Discharge Data Allergies Allergy/AdvReac Type Severity Reaction Status Date / Time bee venom protein (honey bee) Allergy Unknown SWELLING Verified 04/20/16 10:40 No Known Drug Allergies Allergy Unknown NKDA Verified 04/20/16 10:40 Consultations 02/25/22 18:13 ED Decision to Admit Stat 02/26/22 07:00 Consult Cardiology Routine Hospital Course (1) Tachyarrhythmia: (2) Retrosternal chest pain: Patient is 66 y/o M with PMH Parkinson's presented to ER with c/o CP, dizziness started 1:00PM today after exertion. Upon arrival to ER HR between 180-190 with SBP in 70's. It is reported appeared to be in narrow complex tachycardia and in process of being placed on monitor he was having saline lock placed and he converted to sinus rhythm with resolution of symptoms. No significant electrolyte abnormality, TSH WNL, Negative COVID, influenza, RSV DDX: Afib RVR, SVT Monitor on tele-did not show any significant arrhythmia Repeat EKG in am-normal sinus rhythm at a rate of 65/min Trend troponin-negative for any ACS Echo of the heart showed-normal LV size and systolic function with EF 60 to 65%, RV systolic function is normal, but the atria are normal in size, mild mitral regurgitation. Appreciate cardiology input and recommendation Will give aspirin 81 mg a day and no beta-deborah on discharge today He will have a Zio patch as an outpatient (3) Hyperglycemia: random glucose: 201 A1c in am (4) Parkinson disease: Continue [id number], Azilect DVT Prophylaxis Lovenox SQ Full Code as per discussion with pt Follows with Dr Stephane Mabry for routine care Pt was seen and care coordinated with Dr Meehan. See addendum Plan Discharge home today Total Time Total Time Spent Total Time Spent (In Minutes): 35 minutes Discharge Plan Discharge Items Patient Disposition: Home - Self-Care Reason For Visit: CHEST PAINS, DIZZINESS Discharge Diagnosis: Tachyarrhythmia, chest pain-no ACS, Parkinson's disease Condition on Discharge: Good Activity: Resume your previous activity Non-emergency contact: Primary Care Provider Call non-emergency contact if: you have any medication questions and your symptoms worsen Follow-up/Referrals: Stephane Mabry, DO [Primary Care Provider] - (Your doctor's office will call you with an appointment within 7 days) Diet: Heart Healthy Addtl Attending Provider Instructions: Please take precautions to avoid fall Take 1 baby aspirin a day Please give appointment with your healthcare providers [facility] cardiology office will call you for a Zio patch placement Pending Studies at Discharge: No Stand-Alone Forms: My [facility], Smoking Cessation Medications and DC Order Prescriptions: New aspirin 81 mg Tablet,Delayed Release (Dr/Ec) 81 mg PO QAM 30 Days Qty: 30 0RF Continued [id number] 25-100-200 mg tablet 1 tab PO TID rasagiline 1 mg tablet 1 mg PO DAILY cholecalciferol (vitamin D3) [Vitamin D3] 50 mcg (2,000 unit) Capsule 2,000 unit PO DAILY riboflavin (vitamin B2) 400 mg Tablet 400 mg PO DAILY magnesium oxide 400 mg magnesium Tablet 400 mg PO DAILY Discharge Orders: Discharge Order (Routine); Ordered 02/26/22 Ordered By: Lesley Hinkle Admission Data Admit Date/Time: 02/25/22 18:23 Attending Provider: Lesley Hinkle Admit Provider: Trav Meehan Primary Care Provider: Stephane Mabry Other Providers: Trav Meehan ; Sesar Phillips Other Interventions: Discharge Summary Assessment (RN) Last Done: 02/26/22 12:25
== END 2022-02-26 13:06 | disposition home or self-care (01) ==
LOC: ED 13:42 → EDINP 13:42 → SUATTDRO 18:23 → 2N 21:18

== ENCOUNTER 2023-07-24 06:05 | Observation (INO) ==
--- OUTSIDE RECORDS SUMMARY | 2023-07-24 06:07 | External Medical Summary | Summary of Care ---
Author Name Unknown Organization [facility] Address [address] [place] [address] Phone [phone] Care Team Providers Care Supervising Deputy Name Role Phone Raghavendra Stephane Rendon DO Primary Care Provider [phone] Encounter Details Date Type Department Care Team Description 03/16/2023 Result Scan Unspecified Department <No scans attached> Allergies No known active allergiesdocumented as of this encounter (statuses as of 03/17/2023) Medications Medication Sig Dispensed Refills Start Date End Date Status Misc. Devices MISC Custom Molded Orthotics; Suggest: post to cast. May consider glass's ext right. Hallux limitus right, plantar fasciitis left 1 Each 0 03/13/2019 Active Magnesium Oxide 400 MG Oral Tablet TAKE 1 TABLET BY MOUTH EVERY DAY 30 Tab 2 10/14/2020 Active Riboflavin 400 MG Oral Tablet Take 1 Tab by mouth daily. 90 Tab 1 10/15/2020 Active Vitamin D3 1.25 MG (69296 UT) Oral Capsule Take 2,000 Units by mouth daily. 0 Active Rasagiline Mesylate 1 MG Oral Tablet (Azilect) Take 1 tab daily 90 Tab 3 01/01/2021 Active Aspirin 81 MG Oral Tablet Delayed Release Take 1 Tablet by mouth in the morning. 0 02/26/2022 Active Ihtsjmxxk-Vdhtlwrp-Y ntacapone 25-100-200 MG Oral Tablet Take by mouth 1 Tablet 3 times a day . 0 03/29/2022 Active clonazePAM 0.5 MG Oral Tablet (KlonoPIN) Take 1 Tablet by mouth in the morning. 0 02/27/2023 Active Ketoconazole 2 % External Cream Apply topically to affected area 2 times a day. Apply to feet 60 g 1 03/08/2023 04/19/2023 Active documented as of this encounter (statuses as of 03/17/2023) Active Problems Problem Noted Date Primary osteoarthritis of both first car pometacarpal joints 03/22/2022 Parkinson's disease 01/01/2021 Chronic bilateral low back pain without sciatica 05/13/2019 Chronic pain of both knees 05/13/2019 Anosmia 05/30/2014 Benign neoplasm of colon 03/23/2006 Overview: colonoscopy--non-specific inflammation ADVANCE DIRECTIVE INFORMATION 03/03/2006 Overview: Pt accepted brochure GENERAL OSTEOARTHROSIS 03/11/2004 Fam hx-ischem heart disease documented as of this encounter (statuses as of 03/17/2023) Resolved Problems Problem Noted Date Resolved Date Tremor 02/03/2020 01/01/2021 HYPERPLASTIC COLON POLYP 09/15/2000 019 Other health problem within the family 1 03/08/2023 CHRONIC BACK SYNDROME 05/13/2019 Other atopic dermatitis 05/13/20 19 Overview: ICD-10 update of inactive term documented as of this encounter (statuses as of 03/17/2023) Immunizations Name Administration Dates Next Due COVID-19 mRNA, LNP-s, No Pre serve, 2-Dose Series (Moderna) 08/24/2020,07/21/2020 COVID-19, mRNA, LNP-s, PF, B ooster, 100mcg/0.5mg (Moderna) 10/04/2021,04/21/2021 Covid-19, Mrna, Lnp-s, Pf, B ivalent, 30 Mcg, IM, 12 yrs and above (Pfizer) 02/21/2023,03/18/2022 Pneumococcal Conjugate Vacc, 13 Valent (Prevnar) 06/05/2018 Pneumococcal Polysaccharide PPV23 (Pneumovax) 12/30/2019 Seasonal Influenza, Quadriva lent Hd (Fluzone Hd) 02/21/2023,03/01/2022,03/18/2021 Seasonal Influenza, Quadriva lent Hd, 65+ Yrs 03/28/2020 Seasonal Influenza, Quadriva lent, No Preserve, IM 02/28/2019,04/01/2016 Seasonal Influenza, Quadriva lent, No Preserve, Mdck 04/05/2018 Seasonal Influenza, Split, I IV3, With Preserve, Inj 03/22/2017,03/13/2015,04/04/2014,05/03,04/14/2012,06/02/2011,04/20/2010 ,04/19/2007 TDAP (age 10 and older)(Boostrix) 07/26/2017 TDAP (age 11 and older)(Adacel) 03/19/2007 Varicella Zoster Vaccine (Adult) 05/30/2014 Zoster Vaccine Recombinant (Shingrix) 02/08/2018 ,11/14/2017 documented as of this encounter Social History Tobacco Use Types Packs/Day Years Used Date Smoking Tobacco: Never Smokeless Tobacco: Never Alcohol Use Standard Drinks/Week Comments No 0 (1 standard drink = 0.6 oz pur e alcohol) Sex Assigned at Date Recorded Not on file Job Start Date Occupation Industry Not on file Not on file Not on file documented as of this encounter Plan of Treatment Upcoming Encounters Date Type Specialty Care Team Description 06/02/2023 Office Visit Otolaryngology Tesfaye Rodriguez, [address] [place] [address] 07/28/2023 Office Visit Cardiology Mark Lindsey DO [address] [place] [address] 03/26/2024 Office Visit Family Medicine Stephane Mabry DO [address] [facility] [place] [address] Scheduled Procedures Name Priority Associated Diagnoses Date/Ti me COLONOSCOPY FLEXIBLE PROXIMAL DIAGNOSTIC Recall History of colon polyps Health Maintenance Due Date Last Done Comments Depression Screening 01/01/2022 01/01/2021 Lipid Panel 12/25/2024 12/26/2019, 02/0 06/2017, 07/21/2015, Additional history exists COLONOSCOPY-EVERY 5 YRS AGES 18-100 09/14/2026 09/14/2021, 09/14/2021, 02/22/2021, Additional history exists DTaP,Tdap,and Td Vaccines (3 - Td or Tdap) 07/26/2027 07/26/2017, 03/19/2007, 12/11/1995 Zoster Vaccines Completed 02/08/2018, 10/25, 05/30/2014 Pneumococcal Vaccine: 65+ Years Completed 12/30/2019, 06/05/2018 COVID-19 Vaccine Completed 02/21/2023, , 10/04/2021, Additional history exists Influenza Vaccine (FLU shot) Completed , 03/01/2022, 03/18/2021, Additional history exists GARDASIL-HPV IMMUNIZATION SERIES Aged Out No longer eligible based on patient's age to complete this topic Hepatitis B Aged Out No longer eligi ble based on patient's age to complete this topic MENINGOCOCCAL (MENACTRA/MENVEO) Aged Out No longer eligible based on patient's age to complete this topic documented as of this encounter Medical Devices Not on filedocumented as of this encounter Procedures Procedure Name Priority Date/Time Associated Diagnosis Comments PROCEDURE SCANNED RESULT 03/16/2023 documented in this encounter Results * PROCEDURE SCANNED RESULT (03/16/2023) 03/16/2023 No Physician Data Unknown SURGERY documented in this encounter Care Teams Supervising Deputy Relationship Specialty Start Date End Date Stephane Mabry, DO [address] [place] [address] PCP - General Family Medicine 05/13/19 documented as of this encounter
--- OUTSIDE RECORDS SUMMARY | 2023-07-24 06:07 | External Medical Summary | Summary of Care ---
Author Name Unknown Organization [facility] Address [address] [place] [address] Phone [phone] Care Team Providers Care Clam Dredger Name Role Phone Raghavendra Stephane Rendon DO Primary Care Provider [phone] Encounter Details Date Type Department Care Team Description 04/12/2023 Office Visit [facility] [address] [facility] [place] [address] Joann Cody Au.D. [address] [place] [address] Bilateral sensorineural hearing loss* Allergies No known active allergiesdocumented as of this encounter (statuses as of 04/12/2023) Medications Medication Sig Dispensed Refills Start Date [...] 1 10/15/2020 Active Vitamin D3 1.25 MG (55329 UT) Oral Capsule Take 2,000 Units by mouth daily. 0 Active Rasagiline Mesylate 1 MG Oral Tablet (Azilect) Take 1 tab daily 90 Tab 3 01/01/2021 Active Aspirin 81 MG Oral Tablet Delayed Release Take 1 Tablet by mouth in the morning. 0 02/26/2022 Active Pfpgvjqgj-Xygflozd-B ntacapone 25-100-200 MG Oral Tablet Take by [...] as of this encounter (statuses as of 04/12/2023) Active Problems Problem Noted Date Primary osteoarthritis [...] as of this encounter (statuses as of 04/12/2023) Resolved Problems Problem Noted Date Resolved Date Tremor 02/03/2020 01/01/2021 HYPERPLASTIC COLON POLYP 09/15/2000 019 Other health problem within the family 1 03/08/2023 CHRONIC BACK SYNDROME 05/13/2019 Other atopic dermatitis 05/13/20 19 Overview: ICD-10 update of inactive term documented as of this encounter (statuses as of 04/12/2023) Immunizations Name Administration Dates Next Due COVID-19 [...] on file documented as of this encounter Progress Notes * Chan Skinner - 04/12/2023 12:51 PM EDT Images from the original note were not included. Audiologic evaluation was completed on referral from Otolaryngology clinic. Tympanometry 23917 Right: WNL for static admittance, tympanometric peak pressure, equivalent volume, and tympanic width("Type A") Left: WNL for static admittance, tympanometric peak pressure, equivalent volume, and tympanic width("Type A") Standard audiometric testing 45083 ABSD supra-aural earphones Good reliability Right: mild to moderately severe sensorineural hearing loss Left: moderate to moderately severe sensorineural hearing loss Speech recognition thresholds were consistent with hearing thresholds. Word recognition scores, obtained via monitored live voice were: right 100%, left 88% Chan Robles, [facility] 04/12/2023 12:51 PM Scan: audiogram, tympanograms documented in this encounter Plan of Treatment Upcoming Encounters Date Type Specialty Care Team Description 07/28/2023 Office Visit Cardiology Mark Lindsey, DO [address] [place] [address] 03/26/2024 Office Visit Family Medicine [facility]phane [facility]abry DO [address] [facility] [address] Scheduled Procedures Name Priority Associated Diagnoses Date/Ti me COLONOSCOPY FLEXIBLE PROXIMAL DIAGNOSTIC Recall History of colon polyps Health Maintenance Due Date Last Done Comments Depression Screening 01/01/2022 01/01/2021 COVID-19 Vaccine ( season) 2023 02/21/2023, 03/18/2022, 10/04/2021, Additional history exists Lipid Panel 12/25/2024 12/26/2019, 06/2017, 07/21/2015, Additional history exists COLONOSCOPY-EVERY 5 YRS AGES 18-100 09/14/2026 09/14/2021, 09/14/2021, 02/22/2021, Additional history exists DTaP,Tdap,and Td Vaccines (3 - Td or Tdap) 07/26/2027 07/26/2017, 03/19/2007, 12/11/1995 Zoster Vaccines Completed 02/08/2018, 10/25, 05/30/2014 Pneumococcal Vaccine: 65+ Years Completed 12/30/2019, 06/05/2018 Influenza Vaccine (FLU shot) Completed , 03/01/2022, [...] Procedure Name Priority Date/Time Associated Diagnosis Comments AUDIOMETRIC RESULT 04/12/2023 documented in this encounter Results * AUDIOMETRIC RESULT (04/12/2023) 04/12/2023 Joann G[facility] documented in this encounter Visit Diagnoses Diagnosis Bilateral sensorineural hearing loss- Primary Sensorineural hearing loss, bilateral documented in this encounter Care Teams Clam Dredger Relationship Specialty Start Date End Date Stephane Mabry, DO [address] [place] [address] PCP - General Family Medicine 05/13/19 documented as of this encounter
--- OUTSIDE RECORDS SUMMARY | 2023-07-24 06:07 | External Medical Summary | Summary of Care ---
Author Name Unknown Organization [facility] Address [address] [place] [address] Phone [phone] Care Team Providers Care Hasher Machine Operator Name Role Phone RaghavendraRiverasanjana Rendon DO Primary Care Provider [phone] Reason for Visit * Reason Comments Follow Up Encounter Details Date Type Department Care Team Description 04/12/2023 Office Visit Otolaryngology [facility] [address] [place] [address] Tesfaye Rodriguez DO [address] [facility] [address] Sensorineural hearing loss (SNHL) of both ears* Allergies No known active allergiesdocumented as of [...] 1 10/15/2020 Active Vitamin D3 1.25 MG (30829 UT) Oral Capsule Take 2,000 Units by mouth daily. 0 Active Rasagiline Mesylate 1 MG Oral Tablet (Azilect) Take 1 tab daily 90 Tab 3 01/01/2021 Active Aspirin 81 MG Oral Tablet Delayed Release Take 1 Tablet by mouth in the morning. 0 02/26/2022 Active Uzvqufqlv-Kzcsjkpr-T ntacapone 25-100-200 MG Oral Tablet Take by [...] on file documented as of this encounter Last Filed Vital Signs Vital Sign Reading Time Taken Comments Blood Pressure - - Pulse - - Temperature 35.8 C (96.5 F) 04/12/2023 12:39 PM E DT Respiratory Rate - - Oxygen Saturation - - Inhaled Oxygen Concentration - - Weight 68.9 kg (152 lb) 04/12/2023 12:39 PM EDT Height 177.7 cm (5' 9.96") 04/12/2023 12:39 PM E DT Body Mass Index 21.83 04/12/2023 12:39 PM EDT documented in this encounter Progress Notes * Tesfaye Rodriguez, DO - 04/12/2023 12:39 PM EDT Images from the original note were not included. 04/12/2023 HISTORY OF PRESENT ILLNESS This 68 year old YO male is seen at the request of Stephane Mabry DO for the evaluation of conductive hearing loss in the right ear noted on an outside audiogram. Patient had type a tympanograms.Had a sensorineural hearing loss in the left ear. No previous otologic surgery. No history of recurrent otitis media. No history of head trauma.. He does have tinnitus bilaterally. Problem List Patient Active Problem List Diagnosis Code Fam hx-ischem heart disease Z82.49 GENERAL OSTEOARTHROSIS M15.9 ADVANCE DIRECTIVE INFORMATION Benign neoplasm of colon D12.6 Anosmia R43.0 Chronic bilateral low back pain without sciatica M54.50, G89.29 Chronic pain of both knees M25.561, M25.562, G89.29 Parkinson's disease G20.A1 Primary osteoarthritis of both first carpometacarpal joints M18.0 Past Medical History: Diagnosis Date Benign neoplasm of colon 03/23/06 colonoscopy--non-specific inflammation Past Surgical History: Procedure Laterality Date ARTHROPLASTY KNEE TOTAL Left 04/07/[address] Oden ARTHROPLASTY KNEE TOTAL Right 04/20/2016 COLONOSCOPY 03/23/2006 non-specific inflammation COLONOSCOPY THRU STOMA, W/BIOPSY 08/2000 Single hyperplastic polyp- repeat in 2005 COLONOSCOPY, DIAGNOSTIC (RECTUM) 08/06/2015 diverticulosis, repeat 5 yrs/COLONOSCOPY FLEXIBLE PROXIMAL DIAGNOSTIC performed by Tano Moss MD at [facility]COPY [facility] COLONOSCOPY, DIAGNOSTIC (RECTUM) 02/22/2021 prep-poor, 1-3mm polyp in cecum, diverticulosis in sigmoid, internal hemorrhoids /pathology report revealed it did not survive processing / recall 6 to 12 month follow up / COLONOSCOPY FLEXIBLE PROXIMAL DIAGNOSTIC performed by Tano Moss MD at ENDOSCOPY [facility] COLONOSCOPY, DIAGNOSTIC (RECTUM) 09/14/2021 adenomatous polyp, diverticulosis, repeat 5 yrs / COLONOSCOPY FLEXIBLE PROXIMAL DIAGNOSTIC performed by Tano Moss MD at ENDOSCOPY [facility] DRAINAGE OF FOOT BURSA 1982 Dr. boyd -right foot Medications Current Outpatient Medications Medication Sig Dispense Refill Misc. Devices MISC Custom Molded Orthotics; Suggest: post to cast. May consider glass's ext right.Hallux limitus right, plantar fasciitis left 1 Each 0 Magnesium Oxide 400 MG Oral Tablet TAKE 1 TABLET BY MOUTH EVERY DAY 30 Tab 2 Riboflavin 400 MG Oral Tablet Take 1 Tab by mouth daily. 90 Tab 1 Vitamin D3 1.25 MG (27518 UT) Oral Capsule Take 2,000 Units by mouth daily. Rasagiline Mesylate 1 MG Oral Tablet (Azilect) Take 1 tab daily 90 Tab 3 Aspirin 81 MG Oral Tablet Delayed Release Take 1 Tablet by mouth in the morning. Yjkmiidnt-Kfvmoouq-Szsxciojam 25-100-200 MG Oral Tablet Take by mouth 1 Tablet 3 times a day . clonazePAM 0.5 MG Oral Tablet (KlonoPIN) Take 1 Tablet by mouth in the morning. Ketoconazole 2 % External Cream Apply topically to affected area 2 times a day. Apply to feet 60 g 1 No current facility-administered medications for this visit. Allergies Review of patient's allergies indicates: No Known Allergies Family History Family History Problem Relation Age of Onset Heart Disorder Mother angina, hx of SVT Gastro-intestinal disorder Mother Hx of benign colon polyps Arthritis Mother one knee replaced Parkinsonism Mother Cancer Father additional hx- has bladder cancer Arthritis Father both knees replaced Blood Disorder Sister Von Willebrand's blood disorder Cancer Sister 54 thyroid cancer Arthritis Sister both knees replaced Hypertension Brother Heart Disorder Brother Tachycardia Heart Disorder Grandmother (Maternal) of heart dx and silicosis Heart Disorder Grandfather (Maternal) of CHF and ASCVD complications Cancer Grandmother (Paternal) of gall bladder cacner; also had carcinomatosis of liver No Past Hx Brother Heart Disorder Sister Hx of CAD Social History Social History Tobacco Use Smoking status: Never Smokeless tobacco: Never Substance Use Topics Alcohol use: No Vaping/E-Cigarette Use Vaping/E-Cigarette Use Never User Passive Exposure No Counseling Given? No Vaping/E-Cigarette Substances Nicotine No Other No Flavoring No THC No Cannabidiol (CBD) No Vaping/E-Cigarette Devices Disposable No Pre-filled or Refillable Cartridge No Refillable Tank No Pre-filled Pod No Review of Systems Negative for constitutional, eyes, cardiac, pulmonary, hepatic, renal, digestive, hematologic, epileptic, syncopal, musculo-skeletal, mental health, integumentary, hypertensive, lipid, arthritic, diabetic, thyroid, or neurologic disorders (except as listed in the PMH and Problem List). Physical Examination: Temp 35.8 C (96.5 F) (Tympanic) | Ht 1.777 m (5' 9.96") | Wt 68.9 kg (152 lb) | BMI 21.83 kg/m | BSA 1.84 m PHYSICAL EXAM General: This is a healthy appearing male who appears his stated age. The patient is alert and appropriately verbally conversant without hoarseness. Face: The face was inspected and no cutaneous masses or lesions were visualized. There was no erythema or edema noted. Facial movement was symmetric without weakness. No skin lesions were detected. There was no sinus tenderness elicited. The parotid and submandibular glands were normal to palpation. Eyes: Extra-ocular muscle function was intact. No nystagmus was observed. Pupils were equal. Cranial Nerves: Cranial nerves II, III, IV, and were noted to be intact via extra-ocular muscle movement testing. Cranial nerve VII noted to be intact and symmetric by facial movement. Nose: Examination of the nose revealed no masses, polyps, mucopus, or other lesion. The nasal septum was non-obstructing. The turbinates were without abnormality. Ears: Examination of the ears revealed that the auricles were normally formed with no lesions. The external auditory canals were cleaned of any obstructing cerumen. The tympanic membranes were intactand freely mobile to pneumatoscopy. There are no significant retraction pockets. There is no inflammation visualized. No effusions are seen. Procedure: In order to assess ears in further detail, the patient was brought to the microscope room and the ears were evaluated under the operating microscope. The findings are as noted in the above physical exam. Type A tympanograms bilaterally. Assessment: 68-year-old male with bilateral downsloping high-frequency sensorineural hearing loss Plan: Patient reassured his otologic exam under microscopic visualization was normal today. Repeat enteric testing consistent with bilateral sensorineural hearing loss today. Discussed the option of hearing aid versus observation. He would like to observe for now. He will follow-up in my office p.r.n. I spent a total of 30 minutes on the date of service in preparation, delivery, and documentation ofthe care provided to the above patient, excluding any time spent on the performance of any procedures or separately billable services. Tesfaye Rodriguez DO, [facility] Otolaryngology Head and Neck [place] 04/12/2023 1:19 PM documented in this encounter Nursing Notes * Cata Tabares LPN - 04/12/2023 12:41 PM EDT Patient presents today for ear issues. Went to [facility] had hearing test completed. He complains of pressure, muffled hearing, and ringing in ears. No history of ear issues prior. documented in this encounter Plan of Treatment Upcoming Encounters Date Type Specialty Care Team Description 07/28/2023 Office Visit Cardiology Mark Lindsey DO [address] [place] [address] 03/26/2024 Office Visit Family Medicine Stephane [facility]abry DO [address] [facility] [address] Scheduled Procedures Name Priority Associated Diagnoses Date/Ti [...] Not on filedocumented as of this encounter Visit Diagnoses Diagnosis Sensorineural hearing loss (SNHL) of both ears- Primary documented in this encounter Care Teams Hasher Machine Operator Relationship Specialty Start Date End Date Stephane Mabry, DO [address] [place] [address] PCP - General Family Medicine 05/13/19 documented as of this encounter
--- OUTSIDE RECORDS SUMMARY | 2023-07-24 06:07 | External Medical Summary | Summary of Care ---
Author Name Unknown Organization [facility] Address [address] [place] [address] Phone [phone] Care Team Providers Care Arresting Gear Operator Name Role Phone Raghavendra Stephane Rendon DO Primary Care Provider [phone] Encounter Details Date Type Department Care Team Description 03/27/2023 Orders Only Outcomes Research Department [address] [place] [address] Paloma Cobian CHRA [employer] [facility] Other*[id number] Allergies No known active allergiesdocumented as of this encounter (statuses as of 03/27/2023) Medications Medication Sig Dispensed Refills Start Date [...] 1 10/15/2020 Active Vitamin D3 1.25 MG (20592 UT) Oral Capsule Take 2,000 Units by mouth daily. 0 Active Rasagiline Mesylate 1 MG Oral Tablet (Azilect) Take 1 tab daily 90 Tab 3 01/01/2021 Active Aspirin 81 MG Oral Tablet Delayed Release Take 1 Tablet by mouth in the morning. 0 02/26/2022 Active Zcbffpber-Plileepd-Y ntacapone 25-100-200 MG Oral Tablet Take by [...] as of this encounter (statuses as of 03/27/2023) Active Problems Problem Noted Date Primary osteoarthritis [...] as of this encounter (statuses as of 03/27/2023) Resolved Problems Problem Noted Date Resolved Date Tremor 02/03/2020 01/01/2021 HYPERPLASTIC COLON POLYP 09/15/2000 019 Other health problem within the family 1 03/08/2023 CHRONIC BACK SYNDROME 05/13/2019 Other atopic dermatitis 05/13/20 19 Overview: ICD-10 update of inactive term documented as of this encounter (statuses as of 03/27/2023) Immunizations Name Administration Dates Next Due COVID-19 [...] Team Description 06/02/2023 Office Visit Otolaryngology Tesfaye Rodriguez DO [address] [place] [address] 07/28/2023 Office Visit Cardiology Mark Lindsey DO [address] [place] [address] 03/26/2024 Office Visit Family Medicine Stephane Mabry DO [address] [place] [address] Scheduled Orders Name Type Priority Associated Diagnoses Orde r Schedule MYCODE SUBSEQUENT ADULT Lab Routine [facility] Other*[id number] Every 6 Months for 2 Occurrences starting 03/27/2023 until 04/15/2024 Scheduled Procedures Name Priority Associated Diagnoses Date/Ti [...] as of this encounter Visit Diagnoses Diagnosis [facility] Other*[id number] documented in this encounter Care Teams Arresting Gear Operator Relationship Specialty Start Date End Date Stephane Mabry, DO [address] [place] [address] PCP - General Family Medicine 05/13/19 documented as of this encounter
--- OUTSIDE RECORDS SUMMARY | 2023-07-24 06:08 | External Medical Summary | Summary of Care ---
Author Name Unknown Organization [facility] Address [address] [place] [address] Phone [phone] Care Team Providers Care Cooperative Manager Name Role Phone Stephane Mabry DO Primary Care Provider [phone] Reason for Referral * Ancillary Services (Within 10 days (routine)) - Pending Review Specialty Diagnoses / Procedures Referred By Arvin colvin Referred To Contact Audiology Diagnoses Sensorineural hearing loss (SNHL) of both ears Stephane Mabry DO [address] [place] [address] Referral ID Status Reason Start Date Expiration Date Visits Requested Visits Authorized [id number] Pending Review Ancillary Services Required 03/08/[phone] Question Answer Referral Priority Within 10 days (routine) Reason for Referral: Hearing Loss Is this sudden hearing loss? No Reason for Visit * Reason Comments Physical-Exam Encounter Details Date Type Department Care Team Description 03/08/2023 Office Visit Family Practice [facility] [place] [address] [place] [id number] Stephane Mabry DO [address] [place] [address] Routine medical exam*; Parkinson's disease (HCC); Sensorineural hearing loss (SNHL) of both ears; Athlete's foot on left Allergies No known active allergiesdocumented as of this encounter (statuses as of 03/08/2023) Medications Medication Sig Dispensed Refills Start Date End Date Status Misc. Devices [facility] Molded Orthotics; Suggest: post to cast. May consider glass's ext right. Hallux limitus right, plantar fasciitis left 1 Each 0 9 Active Magnesium Oxide 400 MG Oral Tablet TAKE 1 TABLET BY MOUTH EVERY DAY 30 Tab 2 1 Active Riboflavin 400 MG Oral Tablet Take 1 Tab by mouth daily. 90 Tab 1 1 Active Vitamin D3 1.25 MG (17207 UT) Oral Capsule Take 2,000 Units by mouth daily. 0 Active Rasagiline Mesylate 1 MG Oral Tablet (Azilect) Take 1 tab daily 90 Tab 3 1 Active Aspirin 81 MG Oral Tablet Delayed Release Take 1 Tablet by mouth in the morning. 0 2 Active Weatqoerx-Bqmnbkbv-Uo tacapone 25-100-200 MG Oral Tablet Take by mouth 1 Tablet 3 times a day . 0 2 Active clonazePAM 0.5 MG Oral Tablet (KlonoPIN) Take 1 Tablet by mouth in the morning. 0 3 Active Ketoconazole 2 % External Cream Apply topically to affected area 2 times a day. Apply to feet 60 g 1 3 04/19/20 23 Active ibuprofen (MOTRIN) 800 MG TabletIndications:Med ial epicondylitis, right elbow Take 1 Tab by mouth 3 times a day. with food for pain 30 Tab 1 8 03/08/20 23 Discontinued Acetaminophen 325 MG Oral Capsule Take by mouth daily. 0 03/08/20 23 Discontinued Metoprolol Succinate ER 25 MG Oral Tablet Extended Release 24 Hour (Toprol XL)Indications:PSVT (paroxysmal supraventricular tachycardia) ([facility]) Take 0.5 Tablets (12.5 mg) by mouth in the morning. 45 Tablet 3 2 03/08/20 23 Discontinued documented as of this encounter (statuses as of 03/08/2023) Active Problems Problem Noted Date Primary osteoarthritis [...] as of this encounter (statuses as of 03/08/2023) Resolved Problems Problem Noted Date Resolved Date Tremor 02/03/2020 01/01/2021 HYPERPLASTIC COLON POLYP 09/15/2000 019 Other health problem within the family 1 03/08/2023 CHRONIC BACK SYNDROME 05/13/2019 Other atopic dermatitis 05/13/20 19 Overview: ICD-10 update of inactive term documented as of this encounter (statuses as of 03/08/2023) Immunizations Name Administration Dates Next Due COVID-19 [...] Sign Reading Time Taken Comments Blood Pressure 90/50 03/08/2023 1:37 PM EDT Pulse 70 03/08/2023 1:37 PM EDT Temperature 35.4 C (95.7 F) 03/08/2023 1:37 PM ED T Respiratory Rate 16 03/08/2023 1:37 PM EDT Oxygen Saturation 97% 03/08/2023 1:37 PM EDT Inhaled Oxygen Concentration - - Weight 67.2 kg (148 lb 3.2 oz) 03/08/2023 1:37 P M EDT Height 177.7 cm (5' 9.96") 03/08/2023 1:37 PM ED T Body Mass Index 21.29 03/08/2023 1:37 PM EDT documented in this encounter Progress Notes * Stephane Mabry, DO - 03/08/2023 1:49 PM EDT Subjective: Refugio Stallings is a 68 year old male. Chief Complaint Patient presents with Physical-Exam HPI: PT here for a physical. PMHx, PSHx, SHx, FHx, Medications, and Allergies fully reviewed More dizziness with some chest tightness. Pulse jumps up sometimes. 5-10 minutes. Sergio jack not working as well. Seeing cardiology in July. Maybe a little more frequently. Got dizziness on b-deborah. Just on 81 mg aspirin for now. Probably SVT. Lots of exercise. Joined the [facility] [employer] [facility] [employer] total fitness. 3 1 hour sessions per week. Helping his back. Feels more flexible and less pain. Losing weight through exercise. Cannot taste anything. Eats cheese and lunchmeat during the day. Does poriten at night. Not big portions. COVID booster done. We discussed next shot for him. Rash between his toes for the last year. Started from a swimming pool. Has brokemn open. Trying something OTC. Patient Active Problem List Diagnosis Code Fam hx-ischem heart disease Z82.49 GENERAL OSTEOARTHROSIS M15.9 ADVANCE DIRECTIVE INFORMATION Benign neoplasm of colon D12.6 Anosmia R43.0 Chronic bilateral low back pain without sciatica M54.50, G89.29 Chronic pain of both knees M25.561, M25.562, G89.29 Parkinson's disease (HCC) G20 Primary osteoarthritis of both first carpometacarpal joints M18.0 Current Outpatient Medications Medication Sig Dispense Refill [...] 90 Tab 1 Vitamin D3 1.25 MG (52368 UT) Oral Capsule Take 2,000 Units by mouth daily. Rasagiline Mesylate 1 MG Oral Tablet (Azilect) Take 1 tab daily 90 Tab 3 Aspirin 81 MG Oral Tablet Delayed Release Take 1 Tablet by mouth in the morning. Kqvrurqpv-Xufdwhpn-Qhzknyqjvy 25-100-200 MG Oral Tablet Take by mouth 1 Tablet 3 times a day . clonazePAM 0.5 MG Oral Tablet (KlonoPIN) Take 1 Tablet by mouth in the morning. No current facility-administered medications for this visit. Review of patient's allergies indicates: No Known Allergies OBJECTIVE: BP 90/50 | Pulse 70 | Temp 35.4 C (95.7 F) (Tympanic) | Resp 16 | Ht 1.777 m (5' 9.96") | Wt 67.2 kg (148 lb 3.2 oz) | SpO2 97% | BMI 21.29 kg/m | BSA 1.82 m Estimated body mass index is 21.29 kg/m as calculated from the following: Height as of this encounter: 1.777 m (5' 9.96"). Weight as of this encounter: 67.2 kg (148 lb 3.2 oz). BP Readings from Last 3 Encounters: 03/08/23 90/50 10/17/22 110/66 04/07/22 110/60 Wt Readings from Last 3 Encounters: 03/08/23 67.2 kg (148 lb 3.2 oz) 10/17/22 68.1 kg (150 lb 3.2 oz) 04/07/22 69.1 kg (152 lb 6.4 oz) ROS: General: No change in weight, No weakness, No fatigue and No fevers, sweats, or chills Head: No significant headache and No recent significant head injury Eyes: No recent significant change in vision, No eye pain, redness, discharge, or excessive tearing, No diplopia and No h/o cataracts or glaucoma Ears: No recent change in hearing, No tinnitus or vertigo, No ear pain and No ear discharge Nose: No h/o frequent colds or sinusitis, No nasal stuffiness, No h/o hay fever and No significant epistaxis Throat/Oropharynx: No teeth or gum problems, No bleeding gums, No tongue complaints, No sore throatand No recent change in voice or hoarseness Neck: No complaint of lumps in neck, No swollen glands, No recent swelling in thyroid area and No significant pain in neck Respiratory: No cough, sputum, or hemoptysis, No wheezing, No shortness of breath and No recent change in breathing Cardiac: palpitations as above Gastrointestinal: No dysphagia, No significant heartburn, No significant change in appetite, No nausea, vomiting, diarrhea, or constipation, No hematemesis, No blood in stools or black tarry stools, No abdominal bloating or early satiety and No abdominal pain Urinary: No urinary frequency, No dysuria, No hematuria, No urinary urgency, No polyuria, No nocturia, No incontinence, No hesitancy and No sensation of incomplete voiding Musculoskeletal: No joint pain or stiffness, No arthritis, No backache, No muscle pains or cramps and No joint swelling Hematologic: No anemia, No easy bruising or abnormal bleeding and No history of transfusion Neurologic: No fainting or blackouts, No seizures, No paralysis or focal weakness, No numbness or tingling, No tremors and No significant problems with memory PHYSICAL EXAM: General: alert, healthy and no distress Head: Normocephalic, No masses, lesions, tenderness or abnormalities Ears: External ears normal, Canals clear, TM's Normal Nose: no mucosal erythema, no mucosal edema, no purulent discharge Oropharynx: no exudate, no erythema, lips, buccal mucosa, and tongue normal and mucous membranes are moist Neck: supple, no adenopathy, no bruits, thyroid normal size, non-tender, without nodularity Heart: regular rate & rhythm, no murmurs and no gallops Lungs: chest symmetric with normal AP diameter, no chest deformities noted, no chest wall tenderness, lungs clear to auscultation Abdomen: abdomen soft, non-tender, normal bowel sounds and no masses or organomegaly Extremities: less than 2 second capillary refill, no joint deformities, effusion, or inflammation ASSESSMENT/Plan Routine medical exam (Primary) Parkinson's disease (HCC) Sensorineural hearing loss (SNHL) of both ears - AUDIOLOGY REFERRAL OP Athlete's foot on left Other orders - Ketoconazole 2 % External Cream; Apply topically to affected area 2 times a day. Apply to feet I spent a total of 30 minutes on the date of service in preparation, delivery, and documentation ofthe care provided to this patient, excluding any time spent on the performance of any procedure or separately billable services. Dental and sun care discussed along with weight. The above was discussed and understanding was expressed. Stephane Mabry DO documented in this encounter Nursing Notes * Mckenzie James LPN - 03/08/2023 1:33 PM EDT Refugio Stallings presents for annual physical exam. Medications & HM reviewed. 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 Had a covid booster done 02/22/23 is wondering if he should get the one that just got approved as they will be going on a cruise. Has a rash on both feet but is worse on left foot, thinks it may be eczema but not sure. Says he has broken open the skin on left foot wondering if there anything that can be prescribed to help documented in this encounter Plan of Treatment Upcoming Encounters Date Type Specialty Care Team Description 07/28/2023 Office Visit Cardiology Mark Lindsey, DO [address] [place] [id number] 03/26/2024 Office Visit Family Medicine Stephane Mabry DO [address] [place] [address] Scheduled Procedures Name Priority Associated Diagnoses Date/Ti me COLONOSCOPY FLEXIBLE PROXIMAL DIAGNOSTIC Recall History of colon polyps Scheduled Referrals Name Type Priority Associated Diagnoses Orde r Schedule AUDIOLOGY REFERRAL OP Referral Within 10 days (routine) Sensorineural hearing loss (SNHL) of both ears Ordered: 03/08/2023 Health Maintenance Due Date Last Done Comments Depression Screening 01/01/2022 01/01/2021 Lipid Panel 12/25/2024 12/26/2019, 06/2017, 07/21/2015, Additional [...] as of this encounter Visit Diagnoses Diagnosis Routine medical exam- Primary Routine general medical examination at a health care facility Parkinson's disease (HCC) Paralysis agitans Sensorineural hearing loss (SNHL) of both ears Athlete's foot on left Dermatophytosis of foot documented in this encounter Care Teams Cooperative Manager Relationship Specialty Start Date End Date Stephane Mabry, DO [address] [place] [address] PCP - General Family Medicine 05/13/19 documented as of this encounter
[2023-07-24 06:32] LABS: Basophils # (auto) 0.06 K/uL (0.00-0.20); Basophils % (auto) 0.7 %; Eosinophils # (auto) 0.27 K/uL (0.00-0.50); Eosinophils % (auto) 3.2 %; Hematocrit (blood only) 42.2 % (42.0-52.0); Hemoglobin 14.6 g/dl (14.0-18.0); Immature Granulocytes # (auto) 0.02 K/uL (0.01-0.20); Immature Granulocytes % (auto) 0.2 %; Lymphocytes # (auto) 1.84 K/uL (1.20-3.40); Lymphocytes % (auto) 21.9 %; Mean Corpuscular Hemoglobin 31.7 pg (25.0-34.0); Mean Corpuscular Hgb Conc 34.6 g/dL (32.0-36.0); Mean Corpuscular Volume 91.5 fL (80.0-100.0); Monocytes # (auto) 0.89 K/uL (0.11-0.59); Monocytes % (auto) 10.6 %; Neutrophils # (auto) 5.33 K/uL (1.40-6.50); Neutrophils % (auto) 63.4 %; Platelet Count 228 K/uL (130-400); RDW Coefficient of Variation 12.6 % (11.5-14.5); RDW Standard Deviation 42.1 fL (36.4-46.3); Red Blood Count 4.61 M/uL (4.70-6.10); White Blood Count 8.41 K/ul (4.8-10.8)
[2023-07-24 06:48] LABS: Albumin Globulin Ratio 1.6 (0.9-2); Albumin Level 4.6 gm/dl (3.4-5.0); BUN Creatinine Ratio 19.3 (10-20); Bilirubin,Total 0.4 mg/dl (0.2-1.0); Calcium 9.4 mg/dl (8.6-10.3); Creatinine Clr Calc Pharmacy 79.2 ml/min; Est GFR (African American) 101.6 ml/min; Est GFR (Non-African American) 87.6 ml/min; Globulin 2.9 gm/dl (2.5-4.0); Magnesium 1.8 mg/dl (1.7-2.4); Potassium 3.9 mmol/L (3.5-5.1); Total Protein 7.5 gm/dl (6.0-8.3)
[2023-07-24] MEDS ORDERED: SODIUM CHLORIDE 0.9% 1,000 ML IV ONE (07:08)
[2023-07-24 07:09] LABS: Troponin I High Sensitivity 145.5 pg/ml (0-20)
--- NOTE | 2023-07-24 07:12 | Emergency Department Note ---
Impression & Plan Elevated troponin, Syncope ED Provider Note NAME: YARI VÁZQUEZ AGE: 68 SEX: M : 1955 ARRIVES VIA: Ambulance INFORMANT: Patient ED PROVIDER(S): Eron Gomez DO CHIEF COMPLAINT: syncope HPI: Patient is a 68-year-old gentleman with a past medical history of Parkinson's disease, hypotension, tachyarrhythmia who presents to the ER for syncopal event. He notes he has had 2 in the past 24 hours. This morning he went to get up he felt a little lightheaded and nauseated. He then laid down. This abated. He went to the bathroom and sat down to urinate. He did not have to go that badly. He denies any belly pain, nausea or vomiting at the time. No chest pain or shortness of breath. He notes that he then passed out and hit his head. He woke back up about 4 minutes later per who provided additional history at bedside. He denies all complaints at this time. He notes that he did hit the right side of his head. No chest pain or shortness of breath. No weakness or numbness in the arms or legs. No other exacerbating or remitting factors. ADDITIONAL HISTORY OBTAINED: Per HPI Chronic Medical/Social Conditions Affecting Care: Per HPI PAST MEDICAL HISTORY:See Below PAST SURGICAL HISTORY:See Below FAMILY HISTORY:See Below SOCIAL HISTORY:See Below HOME MEDICATIONS:See Below ALLERGIES:See Below VITALS:See Below PHYSICAL EXAMINATION: GENERAL: Sitting up in bed, alert, well appearing, well nourished, no distress, non-toxic HEAD: Normocephalic with a small amount of erythema over the right face EYE EXAM: normal conjunctiva. PERRL and EOM's intact. OROPHARYNX: no exudate, no erythema, lips, buccal mucosa, and tongue normal and mucous membranes are moist NECK: supple, no nuchal rigidity, no adenopathy, non-tender LUNGS: Clear to auscultation. Normal chest wall mechanics HEART: no murmurs, S1 normal and S2 normal ABDOMEN: abdomen soft, non-tender, normo-active bowel sounds, no masses, no rebound or guarding. BACK: Back is symmetrical on inspection and there is no deformity, no midline tenderness, no CVA tenderness. UPPER EXTREMITIES: upper extremities are grossly normal. LOWER EXTREMITIES: No tenderness on palpation of the entire right and left lower extremities NEURO EXAM: Normal sensorium, cranial nerves II-XII grossly intact, normal speech, no gross weakness of arms, no gross weakness of legs. MEDICAL DECISION MAKING: Patient is a 68-year-old male who presents ER for above-stated complaint. Previous admission reviewed on 02/2022 for tachyarrhythmia. IV was established blood work is obtained. Labs show no significant leukocytosis or anemia. BMP was unremarkable. Mag T. bili and LFTs were normal. Troponin was elevated at about 150. UA was clean. COVID flu and RSV were negative. CT angio of the chest was performed following the result of positive troponin in light of recent travel to [place] via car. CT angio showed pulmonary and liver nodules. Held on heparin as patient had no chest pain or shortness of breath to suggest ACS. Favor that this is likely related to tachyarrhythmia versus syncopal event. Consults/Care Managements Discussions: Per [facility] Triage Nursing notes reviewed. Limited review of prior medical records performed Vital Signs: reviewed and remarkable for no significant abnormalities Differential diagnosis: Discussed with Pt concerning signs and symptoms to watch out for. Pt was instructed to follow up with their PCP and discussed with the patient their option to return to the ED at anytime for persistent or worsening symptoms. The appropriate anticipatory guidance and out-patient management, including indications for return to the emergency department, were explained at length to the patient and understood. ER treatment provided: See below Diagnostics interpreted by me include EKG and cardiac monitoring as listed below: -Cardiac Monitoring: An order was placed for continuous cardiac monitoring. The monitor shows a rate of 80 with sinus rhythm. -ECG: Sinus rhythm rate of 59 Normal axis No PVCs QTc 415 -Laboratory studies:Interpreted by me as stated above in MDM and shown below. Imaging studies: Xrays: As interpreted by me:none CTs show: CT of the head per my preliminary interpretation shows no obvious large bleed CT of the head and chest per radiology was negative Procedures:none Critical Care: None Past Med/Surg History Medical History (Updated 07/24/23 @ 10:24 by Eron Gomez DO) Fam hx-ischem heart disease Chronic bilateral low back pain without sciatica Anosmia Chronic pain of both knees Generalized osteoarthrosis Benign neoplasm of colon Parkinson disease Surgical History (Updated 07/24/23 @ 09:08 by Saige Godinez DO) History of colonoscopy History of total knee arthroplasty 04/20/2016-right 04/07/2015-left (Dr. Rob) Family History Sister Von Willebrand disease Social History Smoking Status: Never smoker Hx Alcohol Use: No Hx Substance Use: No Preferred Language: Romansh Communication Ability: Effective Embedded Systems Developer Required: No Current Living Situation: Spouse Feels Safe at Home: Yes Assistive Devices: None Allergies Allergies Allergy/AdvReac Type Severity Reaction Status Date / Time bee venom protein (honey bee) Allergy Unknown SWELLING Verified 04/20/16 10:40 No Known Drug Allergies Allergy Unknown NKDA Verified 04/20/16 10:40 Home Meds Home Medications Medication Instructions Recorded Confirmed cholecalciferol (vitamin D3) 50 2,000 unit PO DAILY 02/25/22 07/24/23 mcg (2,000 unit) capsule (Vitamin D3) magnesium oxide 400 mg PO DAILY 02/25/22 07/24/23 rasagiline 1 mg tablet 1 mg PO DAILY 02/25/22 07/24/23 riboflavin (vitamin B2) 400 mg 400 mg PO DAILY 02/25/22 07/24/23 tablet aspirin 81 mg tablet,delayed 81 mg PO DAILY 07/24/23 07/24/23 release carbidopa ER 48.75 mg-levodopa 195 1 cap PO QID 07/24/23 07/24/23 mg capsule,extended release (Rytary) clonazepam 1 mg tablet 1 mg PO HS 07/24/23 07/24/23 Results & Data (ED) Vital Signs Vital Signs - 24 hr 07/24/23 06:08 07/24/23 06:08 07/24/23 06:09 Temperature Temperature Source Pulse Rate 75 75 76 Pulse Rate [Right Finger] Pulse Rhythm [Right Finger] Pulse Strength [Right Finger] Respiratory Rate 10 L 10 L 19 Respiratory Effort / Characteristics Respiratory Depth Respiratory Pattern Blood Pressure 113/68 113/68 Blood Pressure [Left Arm] Blood Pressure Mean 92 83 Blood Pressure Mean [Left Arm] Blood Pressure Position [Left Arm] Pulse Oximetry 95 97 Oxygen Delivery Method Sepsis Recent Fever Within 48 Hours No Sepsis New/Unexplained Change in Mental Status No Sepsis Action Taken by Nursing No Action Required 07/24/23 06:09 07/24/23 06:10 07/24/23 06:34 Temperature Temperature Source Pulse Rate 100 H 77 Pulse Rate [Right Finger] Pulse Rhythm [Right Finger] Pulse Strength [Right Finger] Respiratory Rate 16 Respiratory Effort / Characteristics Respiratory Depth Respiratory Pattern Blood Pressure Blood Pressure [Left Arm] Blood Pressure Mean Blood Pressure Mean [Left Arm] Blood Pressure Position [Left Arm] Pulse Oximetry Oxygen Delivery Method Room Air Sepsis Recent Fever Within 48 Hours Sepsis New/Unexplained Change in Mental Status Sepsis Action Taken by Nursing 07/24/23 08:00 Temperature 36.7 C Temperature Source Oral Pulse Rate Pulse Rate [Right Finger] 61 Pulse Rhythm [Right Finger] Regular Pulse Strength [Right Finger] Normal Respiratory Rate 16 Respiratory Effort / Characteristics Non-Labored Spontaneous Respiratory Depth Normal Respiratory Pattern Regular Blood Pressure Blood Pressure [Left Arm] 123/75 Blood Pressure Mean Blood Pressure Mean [Left Arm] 91 Blood Pressure Position [Left Arm] Semi-fowlers Pulse Oximetry 97 Oxygen Delivery Method Room Air Sepsis Recent Fever Within 48 Hours Sepsis New/Unexplained Change in Mental Status Sepsis Action Taken by Nursing Laboratory Data 07/24/23 06:13 07/24/23 06:13 Lab Results 07/24/23 07/24/23 07/24/23 Range/Units 06:13 07:37 07:53 WBC 8.41 (4.8-10.8) K/ul RBC 4.61 L (4.70-6.10) M/uL Hgb 14.6 (14.0-18.0) g/dl Hct 42.2 (42.0-52.0) % MCV 91.5 (80.0-100.0) fL MCH 31.7 (25.0-34.0) pg MCHC 34.6 (32.0-36.0) g/dL RDW Std Deviation 42.1 (36.4-46.3) fL RDW Coeff of Najma 12.6 (11.5-14.5) % Plt Count 228 (130-400) K/uL MPV 9.0 L (9.4-12.4) fL Immature Gran % (Auto) 0.2 % Neut % (Auto) 63.4 % Lymph % (Auto) 21.9 % [place] % (Auto) 10.6 % Eos % (Auto) 3.2 % Baso % (Auto) 0.7 % Neut # (Auto) 5.33 (1.40-6.50) K/uL Lymph # (Auto) 1.84 (1.20-3.40) K/uL [place] # (Auto) 0.89 H (0.11-0.59) K/uL Eos # (Auto) 0.27 (0.00-0.50) K/uL Baso # (Auto) 0.06 (0.00-0.20) K/uL Immature Gran # (Auto) 0.02 (0.01-0.20) K/uL Sodium 136 (136-145) mmol/L Potassium 3.9 (3.5-5.1) mmol/L Chloride 101 (98-107) mmol/L Carbon Dioxide 27 (21-32) mmol/L Anion Gap 8 (3-11) BUN 17 (6-23) mg/dl Creatinine 0.88 (0.6-1.4) mg/dl Est Cr Clr Drug Dosing 79.2 ml/min Est GFR ( Amer) 101.6 ml/min Est GFR (Non-Af Amer) 87.6 ml/min BUN/Creatinine Ratio 19.3 (10-20) Glucose 122 H (70-99(Fasting)) mg/dl Calcium 9.4 (8.6-10.3) mg/dl Magnesium 1.8 (1.7-2.4) mg/dl Total Bilirubin 0.4 (0.2-1.0) mg/dl AST 17 (13-39) U/L ALT 6 L (7-52) U/L Alkaline Phosphatase 126 H (34-104) U/L Troponin I High Sens 145.5 H* 131.3 H* (0-20) pg/ml Total Protein 7.5 (6.0-8.3) gm/dl Albumin 4.6 (3.4-5.0) gm/dl Globulin 2.9 (2.5-4.0) gm/dl Albumin/Globulin Ratio 1.6 (0.9-2) SARS-CoV-2 (PCR) NEGATIVE (Negative) Influenza Type A (PCR) Negative (Neg) Influenza Type B (PCR) Negative (Neg) RSV (RT-PCR) Negative (Neg) Administered Medications Discontinued Medications Sodium Chloride (Nss) 1,000 mls @ 999 mls/hr IV .Q1H1M ONE Stop: 07/24/23 08:08 Last Infusion: 07/24/23 09:07 Dose: Infused Documented By: Admin: 07/24/23 07:42 Dose: 999 mls/hr Documented By: JOCELYNN Ioversol (Optiray 320 125ml) 118 ml IV ONCE ONE Stop: 07/24/23 08:00 Last Admin: 07/24/23 08:00 Dose: 118 ml Documented By: ANICETO Imaging Data Radiologist's Impression: Head CT 07/24/23 07:08 CT head/brain wo con CLINICAL HISTORY: 68 years-old Male with syncope. Acute syncopal event TECHNIQUE: Multiple axial CT images of the head were obtained without contrast. A dose lowering technique was utilized adhering to the principles of ALARA. CT DOSE: 625.8 mGy.cm COMPARISON: None. FINDINGS: No acute intracranial hemorrhage, midline shift, intracranial mass, hydrocephalus, territorial ischemia or abnormal extra-axial collection. Involutional changes with white matter hypodensities suggestive of probable chronic microvascular ischemic disease. The calvarium is intact. Mild mucosal thickening of the paranasal sinuses. Trace right mastoid effusion. Unremarkable orbits and soft tissues. IMPRESSION: No acute intracranial abnormality or calvarial fracture. ACT 112: Negative or not required by law. The above report was generated using voice recognition software. It may contain grammatical, syntax or spelling errors. Electronically signed by: Vijay Ortega M.D. 07/24/2023 7:44 AM Chest CTA 07/24/23 07:40 CHEST CTA for PULMONARY ARTERIES CT DOSE: 441.46 mGy.cm HISTORY: PE, +trop syncope recent travel TECHNIQUE: Multiaxial CT images of the chest were performed following the intravenous administration of contrast to evaluate the pulmonary arteries. 3D/Maximal intensity projection images were also obtained. Sagittal and coronal reformations were also reviewed. A dose lowering technique was utilized adhering to the principles of ALARA. COMPARISON STUDY: Chest 02/25/2022. FINDINGS: There is an indeterminate 15 mm hypodense lesion within the left hepatic lobe on image 6. This does not appear to represent a simple cyst. There are 2 additional subcentimeter hypodense lesions within the left hepatic lobe on image 25. These are technically too small to characterize but favor cysts. The visualized spleen and adrenal glands are unremarkable. The thyroid gland enhances normally. No mediastinal or hilar lymphadenopathy. The heart is normal in size. No pleural or pericardial effusions. Normal esophagus. Normal caliber thoracic aorta with no evidence for a dissection. No filling defects within the pulmonary arteries to suggest a pulmonary embolus. No acute fractures identified. Mild dependent changes seen at the lung bases. No pneumothorax. The central airways are patent. A 3 mm groundglass nodule within the left lung apex on image 212. Punctate calcified granuloma within the left upper lobe on image 149. No focal lung consolidations to suggest a pneumonia. No evidence for pulmonary edema. IMPRESSION: 1. No evidence for a pulmonary embolus. 2. No focal lung consolidations to suggest a pneumonia. 3. A 3 mm groundglass nodule within the left lung apex. Please refer to the chart below for recommended follow-up. 4. Mild dependent changes seen within the lung bases. Otherwise, no focal lung consolidations to suggest pneumonia. 5. A few subcentimeter hypodense lesions within the left hepatic lobe which are technically indeterminate on this study. In the absence of a known malignancy these are likely benign. Please refer to below summary of Fleischner criteria recommendations for follow- up of incidental CT nodules (Livia Zhang, Guidelines for management of small pulmonary nodules detected on CT scans: A statement from the Fleischner Society, Radiology 237: [phone].) SOLID NODULES Solitary nodule size: <6 mm * Low risk patients: no follow-up needed * high risk patients: optional CT at 12 months Solitary nodule size: 6-8 mm * Low risk patients: follow-up at 6-12 months, then consider further follow-up at 18-24 months * high risk patients: initial follow-up CT at 6-12 months and then at 18-24 months if no change Solitary nodule size: >8 mm * either low or high risk patients - consider follow-up CT at 3 months, and/or CT-PET, and/or biopsy Multiple nodules size: <6 mm * Low risk patients: no routine follow-up * high risk patients: optional CT at 12 months Multiple nodules size: 6-8 mm * Low risk patients: follow-up at 3-6 months, then consider further follow-up at 18-24 months * high risk patients: follow-up at 3-6 months, then at 18-24 months if no change Multiple nodules size: >8 mm * Low risk patients: follow-up at 3-6 months, then consider further follow-up at 18-24 months * high risk patients: follow-up at 3-6 months, then at 18-24 months if no change Note: newly detected indeterminate nodule in persons 35 years of age or older. * Low risk patients: minimal or absent history of smoking and/or other known risk factors * high risk patients: history of smoking or of other known risk factors (e.g. first degree relative with lung cancer, or exposure to asbestos, radon, uranium) * if a nodule up to 8 mm is partly solid or is ground glass further follow-up is required after 24 months to exclude possible slow growing adenocarcinoma (COLTON) SUBSOLID NODULES Solitary pure ground-glass nodule * nodule size <6 mm - no CT follow-up required * nodule size >=6 mm - follow-up CT at 6-12 months, then every 2 years until 5 years Solitary part-solid nodule * nodule size <6 mm - no CT follow-up required * nodule size >=6 mm - follow-up CT at 3-6 months. If unchanged, and solid component remains <6 mm, then annual follow-up for 5 years Multiple subsolid nodules * nodule size <6 mm - follow-up CT at 3-6 months, consider further follow-up at 2 and 4 years if stable * nodule size >=6 mm - follow-up CT at 3-6 months, subsequent management based on the most suspicious nodule(s) ACT 112: Negative or not required by law. Electronically signed by: Scottie Sylvester M.D. 07/24/2023 8:28 AM Discharge Plan Visit Data Chief Complaint: Syncope ED Provider: Eron Gomez Discharge Problem: Elevated troponin, Syncope Patient Disposition: Admitted As Inpatient Discharge Instructions Interventions: ED Discharge Assessment Last Done: 07/24/23 09:27 Discharge Problem: Syncope Qualifiers: Syncope type: unspecified Qualified Code(s): R55 - Syncope and collapse
--- NOTE | 2023-07-24 07:45 | CT Scan Report ---
CT head/brain wo con CLINICAL HISTORY: 68 years-old Male with syncope. Acute syncopal event TECHNIQUE: Multiple axial CT images of the head were obtained without contrast. A dose lowering tech nique was utilized adhering to the principles of ALARA. CT DOSE: 625.8 mGy.cm COMPARISON: None. FINDINGS: No acute intracranial hemorrhage, midline shift, intracranial mass, hydrocephalus, territorial ischem ia or abnormal extra-axial collection. Involutional changes with white matter hypodensities suggestiv e of probable chronic microvascular ischemic disease. The calvarium is intact. Mild mucosal thickening of the paranasal sinuses. Trace right mastoid effus ion. Unremarkable orbits and soft tissues. IMPRESSION: No acute intracranial abnormality or calvarial fracture. ACT 112: Negative or not required by law. The above report was generated using voice recognition software. It may contain grammatical, syntax o r spelling errors. Electronically signed by: Vijay Ortega M.D. 07/24/2023 7:44 AM
[2023-07-24] MEDS ORDERED: OPTIRAY 320 125ml IV ONE (07:59)
--- NOTE | 2023-07-24 08:30 | CT Scan Report ---
CHEST CTA for PULMONARY ARTERIES CT DOSE: 441.46 mGy.cm HISTORY: PE, +trop syncope recent travel TECHNIQUE: Multiaxial CT images of the chest were performed following the intravenous administration of contrast to evaluate the pulmonary arteries. 3D/Maximal intensity projection images were also obta ined. Sagittal and coronal reformations were also reviewed. A dose lowering technique was utilized a dhering to the principles of ALARA. COMPARISON STUDY: Chest 02/25/2022. FINDINGS: There is an indeterminate 15 mm hypodense lesion within the left hepatic lobe on image 6. T his does not appear to represent a simple cyst. There are 2 additional subcentimeter hypodense lesion s within the left hepatic lobe on image 25. These are technically too small to characterize but favor cysts. The visualized spleen and adrenal glands are unremarkable. The thyroid gland enhances normall y. No mediastinal or hilar lymphadenopathy. The heart is normal in size. No pleural or pericardial ef fusions. Normal esophagus. Normal caliber thoracic aorta with no evidence for a dissection. No fillin g defects within the pulmonary arteries to suggest a pulmonary embolus. No acute fractures identified . Mild dependent changes seen at the lung bases. No pneumothorax. The central airways are patent. A 3 mm groundglass nodule within the left lung apex on image 212. Punctate calcified granuloma within th e left upper lobe on image 149. No focal lung consolidations to suggest a pneumonia. No evidence for pulmonary edema. IMPRESSION: 1. No evidence for a pulmonary embolus. 2. No focal lung consolidations to suggest a pneumonia. 3. A 3 mm groundglass nodule within the left lung apex. Please refer to the chart below for recommend ed follow-up. 4. Mild dependent changes seen within the lung bases. Otherwise, no focal lung consolidations to sugg est pneumonia. 5. A few subcentimeter hypodense lesions within the left hepatic lobe which are technically indetermi aruna on this study. In the absence of a known malignancy these are likely benign. Please refer to below summary of Fleischner criteria recommendations for follow-up of incidental CT n odules (Livia Zhang, Guidelines for management of small pulmonary nodules detected on CT scans: A sta tement from the Fleischner Society, Radiology 237: [phone].) SOLID NODULES Solitary nodule size: <6 mm * Low risk patients: no follow-up needed * high risk patients: optional CT at 12 months Solitary nodule size: 6-8 mm * Low risk patients: follow-up at 6-12 months, then consider further follow-up at 18-24 months * high risk patients: initial follow-up CT at 6-12 months and then at 18-24 months if no change Solitary nodule size: >8 mm * either low or high risk patients - consider follow-up CT at 3 months, and/or CT-PET, and/or biopsy Multiple nodules size: <6 mm * Low risk patients: no routine follow-up * high risk patients: optional CT at 12 months Multiple nodules size: 6-8 mm * Low risk patients: follow-up at 3-6 months, then consider further follow-up at 18-24 months * high risk patients: follow-up at 3-6 months, then at 18-24 months if no change Multiple nodules size: >8 mm * Low risk patients: follow-up at 3-6 months, then consider further follow-up at 18-24 months * high risk patients: follow-up at 3-6 months, then at 18-24 months if no change Note: newly detected indeterminate nodule in persons 35 years of age or older. * Low risk patients: minimal or absent history of smoking and/or other known risk factors * high risk patients: history of smoking or of other known risk factors (e.g. first degree relative with lung cancer, or exposure to asbestos, radon, uranium) * if a nodule up to 8 mm is partly solid or is ground glass further follow-up is required after 24 m onths to exclude possible slow growing adenocarcinoma (COLTON) SUBSOLID NODULES Solitary pure ground-glass nodule * nodule size <6 mm - no CT follow-up required * nodule size >=6 mm - follow-up CT at 6-12 months, then every 2 years until 5 years Solitary part-solid nodule * nodule size <6 mm - no CT follow-up required * nodule size >=6 mm - follow-up CT at 3-6 months. If unchanged, and solid component remains <6 mm, then annual follow-up for 5 years Multiple subsolid nodules * nodule size <6 mm - follow-up CT at 3-6 months, consider further follow-up at 2 and 4 years if sta ble * nodule size >=6 mm - follow-up CT at 3-6 months, subsequent management based on the most suspiciou s nodule(s) ACT 112: Negative or not required by law. Electronically signed by: Scottie Sylvester M.D. 07/24/2023 8:28 AM
--- NOTE | 2023-07-24 09:02 | History & Physical Report ---
Date of Service July 24, 2023 Assessment & Plan (1) Syncope: Plan: Likely vasovagal in setting of recent URI on Sudafed and Delsym in the setting of a known h/o orthostatic hypotension from autonomic neuropathy related to Parkinson's disease. No evidence of recurrent SVT at this point. Cont telemetry monitoring. Cardiology consultation. IVF ordered x 2 bags. Avoid further sudafed at this time. PT/OT evaluation. (2) Parkinson disease: Plan: chronic, at baseline. Patient reports orthostatic hypotension at home chronically and is on rasagiline and Rytary. He is followed by Neurology at [facility] regularly. Today he is orthostatic when going sitting to standing as HR jumped from 64 to 105 and he became too lightheaded to remain standing. Agree with cardiology on giving some IVF overnight in setting of recent URI. However, this is an ongoing issue for him. Cont current supporting treatments to avoid falls/syncope such as compression stockings. (3) URI (upper respiratory infection): Plan: Recent URI symptoms x 3 days as noted above taking sudafed and Delsym OTC. Both illness and medications may have contributed to the fall directly or indirectly through possibly triggering his tachycardia. It appears he is symptomatic when he gets SVT in the past, and he is able to break this with increasing vagal tone. He denies any palpitations or issues like this in the last couple of days. Avoid Sudafed/Delsym at this time. Offered additional supportive care, however, patient declined need. Nasal swab negative for flu/covid/rsv (4) Elevated troponin: Plan: Unclear etiology, but flat trend without rise. No chest pain or concern for acute ischemia on EKG today. Consult cards, echo now. Likely demand ischemia, but isn't clear. DVT proph: Lovenox Full Code Dispo-telemetry I spent a total [id number] coordinating, documenting, and providing care for this patient excluding time spent in the performance of separately billed services Saige Godinez DO [facility] Hospitalist History of Present Illness Chief Complaint: syncope Primary Care Provider: Stephane Mabry DO 68 yo M with known h/o Parkinson's disease presents after two syncopal episodes in the past 24 hours. Historically patient was seen by [facility] cardiology in September 2022 for re current episodes of chest discomfort and tachycardia occurring the month prior. Symptoms were lasting 10 seconds and spontaneously resolved after a deep breath without recurrence. He had had an isolated episode of syncope at that time which was prompted with standing quickly and climbing stairs. He was wearing compression stockings daily. Reported a family history of brother and mother who both required ablation for arrhythmia. EKG at that time revealed sinus rhythm. During an admission to [facility] in 02/25/2022 tachycardia was noted with a heart rate of 180 bpm while in the ER but was not captured on EKG before he converted to sinus rhythm. A 7-day Zio monitor was performed in response to this with predominant underlying sinus rhythm and 14 SVT runs occurring. He has a history of echocardiogram in February 2022 which was normal. He underwent an stress echo December 2019 which was negative for inducible ischemia with a normal heart rate response and blood pressure response to exercise. Patient has notably been intolerant to beta-deborah therapy in the past. Continued observation was recommended with consideration for loop recorder implant if symptoms became more frequent or associated with syncope or near syncope in the future. He takes low-dose aspirin. Reports lost consciousness yesterday morning at 0400 while walking into the bathroom. He felt lightheaded prior to LOC and woke up on the floor and was clear. Unsure if he hit his head but reported a headache even prior to the fall and had a RAYMUNDO all night last night. Reports being ill for three days, cough, runny nose with productive mucous, no fevers, no chills. He was taking Sudafed OTC-took two small red pills BID and one ER Sudafed yesterday--drinks caffeine--two cups of tea/day. Also had generic Delsym one dose last night prior to to sleep. This medication is nondrowsy and reportedly didn't sedate him. However, this morning he woke up around 5a and sat up in bed feeling dizzy and queasy. He waited a few minutes and decided to go urinate (he had successfully made it to the bathroom twice overnight without issue already). He sat down on the potty to urinate and was not straining but fet lightheaded with sudden collapse after sitting down. reports his eyes remained open but he was not responding to her for about 4 minutes. Allergies Allergy/AdvReac Type Severity Reaction Status Date / Time bee venom protein (honey bee) Allergy Unknown SWELLING Verified 04/20/16 10:40 No Known Drug Allergies Allergy Unknown NKDA Verified 04/20/16 10:40 Home Medications Medication Instructions Recorded Confirmed Type cholecalciferol (vitamin D3) 50 2,000 unit PO DAILY 02/25/22 07/24/23 History mcg (2,000 unit) capsule (Vitamin D3) magnesium oxide 400 mg PO DAILY 02/25/22 07/24/23 History rasagiline 1 mg tablet 1 mg PO DAILY 02/25/22 07/24/23 History riboflavin (vitamin B2) 400 mg 400 mg PO DAILY 02/25/22 07/24/23 History tablet aspirin 81 mg tablet,delayed 81 mg PO DAILY 07/24/23 07/24/23 History release carbidopa ER 48.75 mg-levodopa 195 1 cap PO QID 07/24/23 07/24/23 History mg capsule,extended release (Rytary) clonazepam 1 mg tablet 1 mg PO HS 07/24/23 07/24/23 History Past Med/Surg History Medical History (Updated 07/24/23 @ 16:47 by Saige Godinez DO) Paroxysmal SVT (supraventricular tachycardia) Fam hx-ischem heart disease Chronic bilateral low back pain without sciatica Anosmia Chronic pain of both knees Generalized osteoarthrosis Benign neoplasm of colon Parkinson disease Surgical History History of colonoscopy History of total knee arthroplasty 04/20/2016-right 04/07/2015-left (Dr. Rob) Family History Sister Von Willebrand disease Social History Smoking Status: Never smoker Hx Alcohol Use: No Hx Substance Use: No Preferred Language: Ukrainian Communication Ability: Effective On Air Personality Required: No Beliefs That Will Affect Care: None Current Living Situation: Spouse Other Information That Helps Us Care for You: No Feels Safe at Home: Yes Safety Concerns: Feels Safe At This Time Assistive Devices: Glasses Physical Exam Physical Exam: CONSTITUTIONAL: WNWD, vitals as above, generally well-appearing, NAD EYES: pupils are round and equal bilaterally, normal conjunctivae, no scleral icterus, ENT: external ear and nose normal, MMM NECK: trachea midline RESPIRATORY: clear to auscultation bilaterally, no crackles, rales or wheezes, normal respiratory effort CARDIOVASCULAR: regular rate and rhythm, S1 and 2 heard without murmurs, gallops or rubs, no JVD, no peripheral edema CHEST: inspection of chest was normal GASTROINTESTINAL: soft, nontender, ND, no guarding MUSCULOSKELETAL: strength 5/5 throughout, head is normocephalic and atraumatic SKIN: warm and dry NEUROLOGIC: CN 2-12 grossly intact, no sensory deficit, normal cognition, normal speech, no tremor PSYCHIATRIC: alert cooperative and oriented to person, place and time. Euthymic mood, makes good eye contact, language grossly intact, recent and remote memory grossly intact. orthostatics: Lying 132/72 HR 62 Sitting 126/70 HR 64 Standing: became symptomatic and had to sit down immediately, HR up to 105/115. Results & Data Results & Data Vital Signs (Past 12 Hours) Vital Signs Temp Pulse Pulse Resp BP BP Pulse Ox 07/24/23 08:00 36.7 C 61 16 123/75 97 07/24/23 06:34 77 07/24/23 06:10 100 H 16 07/24/23 06:09 07/24/23 06:09 76 19 113/68 97 07/24/23 06:08 75 10 L 113/68 95 07/24/23 06:08 75 10 L O2 Del Method 07/24/23 08:00 Room Air 07/24/23 06:34 07/24/23 06:10 07/24/23 06:09 Room Air 07/24/23 06:09 07/24/23 06:08 07/24/23 06:08 Laboratory Results Short CBC 07/24/23 Range/Units 06:13 WBC 8.41 (4.8-10.8) K/ul Hgb 14.6 (14.0-18.0) g/dl Hct 42.2 (42.0-52.0) % Plt Count 228 (130-400) K/uL BMP 07/24/23 06:13 Sodium 136 Potassium 3.9 Chloride 101 Carbon Dioxide 27 BUN 17 Creatinine 0.88 Glucose 122 H Calcium 9.4 Liver Function 07/24/23 Range/Units 06:13 Total Bilirubin 0.4 (0.2-1.0) mg/dl AST 17 (13-39) U/L ALT 6 L (7-52) U/L Alkaline Phosphatase 126 H (34-104) U/L Albumin 4.6 (3.4-5.0) gm/dl Diagnostic Findings Head CT 07/24/23 07:08 CT head/brain wo con CLINICAL HISTORY: 68 years-old Male with syncope. Acute syncopal event TECHNIQUE: Multiple axial CT images of the head were obtained without contrast. A dose lowering technique was utilized adhering to the principles of ALARA. CT DOSE: 625.8 mGy.cm COMPARISON: None. FINDINGS: No acute intracranial hemorrhage, midline shift, intracranial mass, hydrocephalus, territorial ischemia or abnormal extra-axial collection. Involutional changes with white matter hypodensities suggestive of probable chronic microvascular ischemic disease. The calvarium is intact. Mild mucosal thickening of the paranasal sinuses. Trace right mastoid effusion. Unremarkable orbits and soft tissues. IMPRESSION: No acute intracranial abnormality or calvarial fracture. ACT 112: Negative or not required by law. The above report was generated using voice recognition software. It may contain grammatical, syntax or spelling errors. Electronically signed by: Vijay Ortega M.D. 07/24/2023 7:44 AM Chest CTA 07/24/23 07:40 CHEST CTA for PULMONARY ARTERIES CT DOSE: 441.46 mGy.cm HISTORY: PE, +trop syncope recent travel TECHNIQUE: Multiaxial CT images of the chest were performed following the intravenous administration of contrast to evaluate the pulmonary arteries. 3D/Maximal intensity projection images were also obtained. Sagittal and coronal reformations were also reviewed. A dose lowering technique was utilized adherin g to the principles of ALARA. COMPARISON STUDY: Chest 02/25/2022. FINDINGS: There is an indeterminate 15 mm hypodense lesion within the left hepatic lobe on image 6. This does not appear to represent a simple cyst. There are 2 additional subcentimeter hypodense lesions within the left hepatic lobe on image 25. These are technically too small to characterize but favor cysts. The visualized spleen and adrenal glands are unremarkable. The thyroid gland enhances normally. No mediastinal or hilar lymphadenopathy. The heart is normal in size. No pleural or pericardial effusions. Normal esophagus. Normal caliber thoracic aorta with no evidence for a dissection. No filling defects within the pulmonary arteries to suggest a pulmonary embolus. No acute fractures identified. Mild dependent changes seen at the lung bases. No pneumothorax. The central airways are patent. A 3 mm groundglass nodule within the left lung apex on image 212. Punctate calcified granuloma within the left upper lobe on image 149. No focal lung consolidations to suggest a pneumonia. No evidence for pulmonary edema. IMPRESSION: 1. No evidence for a pulmonary embolus. 2. No focal lung consolidations to suggest a pneumonia. 3. A 3 mm groundglass nodule within the left lung apex. Please refer to the chart below for recommended follow-up. 4. Mild dependent changes seen within the lung bases. Otherwise, no focal lung consolidations to suggest pneumonia. 5. A few subcentimeter hypodense lesions within the left hepatic lobe which are technically indeterminate on this study. In the absence of a known malignancy these are likely benign. Please refer to below summary of Fleischner criteria recommendations for follow- up of incidental CT nodules (Livia Zhang, Guidelines for management of small pulmonary nodules detected on CT scans: A statement from the Fleischner Society, Radiology 237: [phone].) SOLID NODULES Solitary nodule size: <6 mm * Low risk patients: no follow-up needed * high risk patients: optional CT at 12 months Solitary nodule size: 6-8 mm * Low risk patients: follow-up at 6-12 months, then consider further follow-up at 18-24 months * high risk patients: initial follow-up CT at 6-12 months and then at 18-24 months if no change Solitary nodule size: >8 mm * either low or high risk patients - consider follow-up CT at 3 months, and/or CT-PET, and/or biopsy Multiple nodules size: <6 mm * Low risk patients: no routine follow-up * high risk patients: optional CT at 12 months Multiple nodules size: 6-8 mm * Low risk patients: follow-up at 3-6 months, then consider further follow-up at 18-24 months * high risk patients: follow-up at 3-6 months, then at 18-24 months if no change Multiple nodules size: >8 mm * Low risk patients: follow-up at 3-6 months, then consider further follow-up at 18-24 months * high risk patients: follow-up at 3-6 months, then at 18-24 months if no change Note: newly detected indeterminate nodule in persons 35 years of age or older. * Low risk patients: minimal or absent history of smoking and/or other known risk factors * high risk patients: history of smoking or of other known risk factors (e.g. first degree relative with lung cancer, or exposure to asbestos, radon, uranium) * if a nodule up to 8 mm is partly solid or is ground glass further follow-up is required after 24 months to exclude possible slow growing adenocarcinoma ([facility]) SUBSOLID NODULES Solitary pure ground-glass nodule * nodule size <6 mm - no CT follow-up required * nodule size >=6 mm - follow-up CT at 6-12 months, then every 2 years until 5 years Solitary part-solid nodule * nodule size <6 mm - no CT follow-up required * nodule size >=6 mm - follow-up CT at 3-6 months. If unchanged, and solid component remains <6 mm, then annual follow-up for 5 years Multiple subsolid nodules * nodule size <6 mm - follow-up CT at 3-6 months, consider further follow-up at 2 and 4 years if stable * nodule size >=6 mm - follow-up CT at 3-6 months, subsequent management based on the most suspicious nodule(s) ACT 112: Negative or not required by law. Electronically signed by: Scottie Sylvester M.D. 07/24/2023 8:28 AM Code Status & VTE Plan VTE Prophylaxis Plan VTE Prophylaxis will be ordered: Yes
[2023-07-24 09:13] LABS: Influenza A virus by PCR Negative (Neg); Influenza B virus by PCR Negative (Neg); RSV by PCR Negative (Neg); SARS CoV2 RNA(COVID-19) Ceph NEGATIVE (Negative)
[2023-07-24 09:29] LABS: Appearance Urine Clear (Clear); Bilirubin Urine Negative (Negative); Blood Urine Negative (Negative); Color Urine Yellow; Glucose Urine UA Negative (Negative); Ketones Urine Negative (Negative); Leukocyte Esterase Urine Negative (Negative); Nitrite Urine Negative (Negative); Protein Urine Negative (Negative); Urobilinogen Urine Negative (Negative); pH Urine 6.5 (4.5-7.5)
[2023-07-24] MEDS ORDERED: ACETAMINOPHEN 325 MG TAB PO PRN (09:32)
[2023-07-24] MEDS ORDERED: POLYETHYLENE (MIRALAX) 17 GM PACK PO PRN (09:32)
--- NOTE | 2023-07-24 09:58 | Electrocardiogram Report ---
Test Reason : Blood Pressure : / mmHG Vent. Rate : 059 BPM Atrial Rate : 059 BPM P-R Int : 152 ms QRS Dur : 082 ms QT Int : 420 ms P-R-T Axes : 062 027 068 degrees QTc Int : 415 ms Sinus bradycardia Otherwise normal ECG When compared with ECG of 26-FEB-2022 05:33, No significant change was found Confirmed by Sumanth Tineo ([id number]) on 07/24/2023 9:58:09 AM Referred By: Confirmed By:Sumanth Tineo
--- NOTE | 2023-07-24 14:10 | Cardiology Consultation ---
Date of Consultation July 24, 2023 Assessment & Plan (1) Syncope: (2) Elevated troponin: (3) Acute hypotension: Plan Assessment: 68 year-old male with 2 reported syncopal episodes in the setting of an acute URI and hypotension. Plan: 1. Syncope -2 reported episodes over the past 24 hours. patient has been having low blood pressure home readings and has known history of orthostatic hypotension. -Obtain orthostatic vital signs -Recommend IV fluid resuscitation in the setting of an acute illness. -CTA chest is negative for a P.E., no focal lung consolidation to suggest pneumonia; however, there is a presence of a 3mm ground glass nodule in the left lung apex -Will obtain echocardiogram to assess overall structure, function and for any valvular disease. Prior echo 12/2019 demonstrated normal LVEF 55% and no significant valvular disease. 2. Elevated Troponin -Unclear etiology at this time. Downward trend. EKG demonstrates NSR with no acute ST-T wave changes. -patient did synopsize, but denies any chest discomfort or cardiac symptoms prior to his episodes which he always felt when he had burst of SVT. -Will obtain echocardiogram to assess LVEF and for any wall motion abnormalities. -Continue to monitor on telemetry for any evidence of arrhythmia 3. Acute hypotension -Known history of orthostatic hypotension in the past and discontinued beta deborah therapy s/t intolerance -Rest BP during examination 90's systolic. -Obtain orthostatics -Obtain echocardiogram -Not currently on any anti-hypertensive therapies. -Takes rasagiline at home for treatment of Parkinson which is known to cause dizziness -Pending patient's response to hydration, review of echocardiogram and continuous monitoring on telemetry will consider the addition of midodrine to his medication regimen. Case has been discussed with Dr. Desai. Further recommendations regarding plan of care as per his assessment. I spent a total of 30 minutes on the date of service in preparation, delivery, documentation of the care provided to the patient excluding any time spent in the performance of separately billed services. LISSA Rosales [facility] Cardiology [facility] Supervising Physician Co-Signing Physician Notes Attending attestation: I have reviewed the advanced practitioner's documentation, and agree with, and take responsibility for the plan of care. Subjective: Patient feeling well. Assessed in room 2 891. So far telemetry sinus rhythm in the 70s noted Exam: Cardiovascular: Regular rhythm, no murmurs, no edema, knee-high compression stockings in place Data: EKG performed 07/24/2023 reveals sinus bradycardia 59 bpm, otherwise normal EKG Impression/ Plan: Patient describes having been diagnosed with Parkinson's 3 years ago. He has a history of what sounds like orthostatic hypotension and had 2 episodes of jayy syncope in the last 24 hours leading up to today's hospital stay. His most recent previous episode dates back to April,. Episode today sounds different in character than his previous subjective tachypalpitations. Previous Zio patch as outlined above with brief episodes of SVT however his symptoms not correlate with his brief episodes of SVT. * Proceed with observation on telemetry. Gentle IV fluids. * Future considerations include adding low-dose midodrine for blood pressure support. I spent a total of 20 minutes coordinating, documenting, and providing care for this patient excluding time spent in the performance of separately billed services or time spent by another provider. Randall Desai, History of Present Illness Reason for Consultation: syncope, history of SVT, elevated troponin Requesting Physician: Sada reading hospitalist Attending Physician: Saige Godinez, History of Present Illness Patient is a 68 year old male with PMHx significant for Parkinson's disease, hypotension, and SVT that had presented to the ER with reports of 2 syncopal episodes in the last 24 hours. Patient states that he has been noting for quite some time that he will have dizziness or pre-syncopal symptoms with quick position changes which he has attributed to his parkinson's disease. Over the past 4 days patient has had decreased appetite, and had acute URI symptoms including runny nose, sinus/nasal congestion. Denies any fever or chills. Denies any N/V/D. He has been taking pseudoephedrine for symptom relief. the first episode was after quick standing and lasted only a few seconds. The second episode which occurred this morning was while in the bathroom and he felt dizzy, lightheaded and nauseated, he quickly sat on the toilet, but had reportedly "went out", was witness to event. He did not strike his head and she was able to summon 911 while remaining with patient. She reports that he was out about 4 minutes. When he woke he had no post ictal confusion, no vomiting or incontinence episodes. Review of [facility] records does state that patient was having increased episodes of near syncope or syncope In Jun 2022 felt to be related to low blood pressures and recently discontinued Toprol xl because of this. patient felt that he was doing much better until now. EKG upon arrival demonstrates NSR with no acute ST-T wave changes. Rate 59bpm. High sensitivity troponin 145.5/ 131.4 Primary Rn New Grad: Dr. Lindsey. last seen in our office 10/17/22 Problem list: SVT Orthostatic hypotension Syncope. Allergies Allergy/AdvReac Type Severity Reaction Status Date / Time bee venom protein (honey bee) Allergy Unknown SWELLING Verified 04/20/16 10:40 No Known Drug Allergies Allergy Unknown NKDA Verified 04/20/16 10:40 Home Medications Medication Instructions Recorded Confirmed Type cholecalciferol (vitamin D3) 50 2,000 unit PO DAILY 02/25/22 07/24/23 History mcg (2,000 unit) capsule (Vitamin D3) magnesium oxide 400 mg PO DAILY 02/25/22 07/24/23 History rasagiline 1 mg tablet 1 mg PO DAILY 02/25/22 07/24/23 History riboflavin (vitamin B2) 400 mg 400 mg PO DAILY 02/25/22 07/24/23 History tablet aspirin 81 mg tablet,delayed 81 mg PO DAILY 07/24/23 07/24/23 History release carbidopa ER 48.75 mg-levodopa 195 1 cap PO QID 07/24/23 07/24/23 History mg capsule,extended release (Rytary) clonazepam 1 mg tablet 1 mg PO HS 07/24/23 07/24/23 History Patient History Medical History (Updated 07/24/23 @ 16:47 by Saige Godinez DO) Paroxysmal SVT (supraventricular tachycardia) Fam hx-ischem heart disease Chronic bilateral low back pain without sciatica Anosmia Chronic pain of both knees Generalized osteoarthrosis Benign neoplasm of colon Parkinson disease Surgical History History of colonoscopy History of total knee arthroplasty 04/20/2016-right 04/07/2015-left (Dr. Rob) Family History Sister Von Willebrand disease Social History Smoking Status: Never smoker Hx Alcohol Use: No Hx Substance Use: No Preferred Language: Maltese Communication Ability: Effective Machine Tack Puller Required: No Beliefs That Will Affect Care: None Current Living Situation: Spouse Other Information That Helps Us Care for You: No Feels Safe at Home: Yes Safety Concerns: Feels Safe At This Time Assistive Devices: Glasses Review of Systems Review of Systems: All systems reviewed & are unremarkable except as noted in HPI & below Physical Exam Constitutional: well developed, + ill appearing (acute URI symptoms ) and + thin Neck: normal visual inspection and trachea midline Respiratory: normal respiratory effort, lungs clear to auscultation Cardiovascular: RRR, no murmur, no edema Vessels: dorsalis pedis pulses present; no JVD Extremities: no edema Skin: no rashes, warm and dry Psychiatric: A+Ox3, euthymic affect Results & Data Vital Signs (Past 12 Hours) Vital Signs Temp Pulse Pulse Resp BP BP Pulse Ox 07/24/23 08:00 36.7 C 61 16 123/75 97 07/24/23 06:34 77 07/24/23 06:10 100 H 16 07/24/23 06:09 07/24/23 06:09 76 19 113/68 97 07/24/23 06:08 75 10 L 113/68 95 07/24/23 06:08 75 10 L O2 Del Method 07/24/23 08:00 Room Air 07/24/23 06:34 07/24/23 06:10 07/24/23 06:09 Room Air 07/24/23 06:09 07/24/23 06:08 07/24/23 06:08 Laboratory Results Cardiac Enzymes 07/24/23 07/24/23 Range/Units 06:13 07:53 AST 17 (13-39) U/L Troponin I High Sens 145.5 H* 131.3 H* (0-20) pg/ml CBC 07/24/23 Range/Units 06:13 WBC 8.41 (4.8-10.8) K/ul RBC 4.61 L (4.70-6.10) M/uL Hgb 14.6 (14.0-18.0) g/dl Hct 42.2 (42.0-52.0) % Plt Count 228 (130-400) K/uL Neut # (Auto) 5.33 (1.40-6.50) K/uL Lymph # (Auto) 1.84 (1.20-3.40) K/uL Elliott # (Auto) 0.89 H (0.11-0.59) K/uL Eos # (Auto) 0.27 (0.00-0.50) K/uL Baso # (Auto) 0.06 (0.00-0.20) K/uL Comprehensive Metabolic Panel 07/24/23 Range/Units 06:13 Sodium 136 (136-145) mmol/L Potassium 3.9 (3.5-5.1) mmol/L Chloride 101 (98-107) mmol/L Carbon Dioxide 27 (21-32) mmol/L BUN 17 (6-23) mg/dl Creatinine 0.88 (0.6-1.4) mg/dl Glucose 122 H (70-99(Fasting)) mg/dl Calcium 9.4 (8.6-10.3) mg/dl AST 17 (13-39) U/L ALT 6 L (7-52) U/L Alkaline Phosphatase 126 H (34-104) U/L Total Protein 7.5 (6.0-8.3) gm/dl Albumin 4.6 (3.4-5.0) gm/dl Intake and Output 07/23/23 07/24/23 07/24/23 22:59 06:59 14:59 Intake Total 1000 / 1000 Balance 1000 / 1000 Intake: IV 1000 / 1000 Sodium Chloride 0.9% 1,000 ml @ 1000 / 1000 999 mls/hr IV .Q1H1M ONE Rx#: [id number] Other: Weight 70.7 kg 70.7 kg Weight Measurement Method [facility] Patient Weight 07/25/23 06:59 Weight 70.7 kg Diagnostic Findings 7 Day Zio monitor 03/03/2022: Patient had a min HR of 49 bpm, max HR of 190 bpm, and avg HR of 80 bpm. Predominant underlying rhythm was Sinus Rhythm. 14 Supraventricular Tachycardia runs occurred, the run with the fastest interval lasting 4 beats with a max rate of 190 bpm, the longest lasting 17 beats with an avg rate of 119 bpm. Isolated SVEs were rare (<1.0%), SVE Couplets were rare (<1.0%), and SVE Triplets were rare (<1.0%). Isolated VEs were rare (<1.0%), VE Couplets were rare (<1.0%), and no VE Triplets were present. The patient recorded 10 event markers and 10 diary entries which correlated with sinus and sinus tachycardia with sensed atrial ectopic beats on 3 occasions Exercise stress echo report December 30, 2019: The stress echo is negative for inducible ischemia. Heart rate response to stress was normal. Blood pressure response to exercise was normal. Exercise capacity is above average . The left ventricular cavity size is normal. The LV wall thickness is normal. Qualitative LV ejection Fraction = 55-60%. The left ventricular wall motion is normal. There is borderline posterior mitral leaflet prolapse. Mild mitral regurgitation is present. (1) Syncope Syncope type: unspecified Qualified Code(s): R55 - Syncope and collapse
[2023-07-24] MEDS: SODIUM CHLORIDE 0.9% 1,000 ML IV SCH (16:56)
[2023-07-24] MEDS: clonazePAM 1 MG TAB PO SCH (20:39)
[2023-07-25] MEDS: SODIUM CHLORIDE 0.9% 1,000 ML IV SCH (03:17)
[2023-07-25] MEDS ORDERED: SODIUM CHLORIDE 0.9% 1,000 ML IV ONE (04:25)
[2023-07-25] MEDS ORDERED: MAGNESIUM SULFATE / D5W 1 GM/100 ML BAG IV ONE (04:26)
[2023-07-25 05:52] LABS: Hematocrit (blood only) 35.5 % (42.0-52.0); Hemoglobin 12.5 g/dl (14.0-18.0); Mean Corpuscular Hgb Conc 35.2 g/dL (32.0-36.0); Mean Corpuscular Volume 90.8 fL (80.0-100.0); Mean Platelet Volume 9.1 fL (9.4-12.4); Platelet Count 179 K/uL (130-400); RDW Coefficient of Variation 12.6 % (11.5-14.5); RDW Standard Deviation 41.4 fL (36.4-46.3); Red Blood Count 3.91 M/uL (4.70-6.10)
[2023-07-25 06:00] LABS: BUN Creatinine Ratio 18.1 (10-20); Calcium 8.3 mg/dl (8.6-10.3); Creatinine Clr Calc Pharmacy 84.8 ml/min; Est GFR (African American) 104.1 ml/min; Est GFR (Non-African American) 89.8 ml/min; Potassium 3.6 mmol/L (3.5-5.1)
--- NOTE | 2023-07-25 08:47 | Cardiology Progress Note ---
Date of Service July 25, 2023 Assessment & Plan (1) Syncope: (2) Elevated troponin: (3) Acute hypotension: Plan Assessment: 68 year-old male with 2 reported syncopal episodes in the setting of an acute URI and hypotension. Plan: 1. Syncope -two reported episodes over the past 24 hours prior to admission.None since time of admission, but did experience pre-syncopal symptoms ambulating to bathroom this am. patient has been having low blood pressure home readings and has known history of orthostatic hypotension. -Obtain orthostatic vital signs -Recommend IV fluid resuscitation in the setting of an acute illness. -CTA chest is negative for a P.E., no focal lung consolidation to suggest pneumonia; however, there is a presence of a 3mm ground glass nodule in the left lung apex -Echocardiogram shows normal LVEF, slightly hyperdynamic 65-70% likely in the setting of dehydration due to acute illness. No wall motion abnormalities, no valvular disease. 2. Elevated Troponin -No acute EKG changes. -No events on telemetry -Denies any chest pain,pressure, palpitations. -Echocardiogram shows normal LVEF, no wall motion abnormalities. 3. Acute hypotension -Known history of orthostatic hypotension in the past and discontinued beta deborah therapy s/t intolerance -Rest BP during examination 90's systolic. -Obtain orthostatics -Not currently on any anti-hypertensive therapies. -Takes rasagiline at home for treatment of Parkinson which is known to cause dizziness -Echocardiogram with no significant changes or abnormalities. Fluid status has improved. BP remains low normal, slight improvement, but does have pre- syncopal symptoms and likely a drop in BP with sudden position changes. will discuss with Dr. Desai and plan to add low dose midodrine to his regimen today Case has been discussed with Dr. Desai. Further recommendations regarding plan of care as per his assessment. I spent a total of 30 minutes on the date of service in preparation, delivery, documentation of the care provided to the patient excluding any time spent in the performance of separately billed services. LISSA Rosales [facility] Admission and Anticipated Discharge Date Admission Date: July 24, 2023 Supervising Physician Co-Signing Physician Notes Attending attestation: I have reviewed the advanced practitioner's documentation, and agree with, and take responsibility for the plan of care. Subjective: Patient feeling well. Had an episode of symptomatic orthostatic hypotension while ambulating to the bathroom this morning. Telemetry reveals sinus rhythm without arrhythmia. Exam: Cardiovascular: Regular rhythm, no murmurs, no edema, knee-high compression stockings in place Data: EKG performed 07/24/2023 reveals sinus bradycardia 59 bpm, otherwise normal EKG Impression/ Plan: Orthostatic hypotension in the setting of history of Parkinson's disease -Proceed with a trial of midodrine 2.5 mg 3 times daily. I spent a total of 20 minutes coordinating, documenting, and providing care for this patient excluding time spent in the performance of separately billed services or time spent by another provider. Randall Desai DO Subjective 07/25/23: patient seen and examined in follow up. He is resting comfortably in bed at this time. BP low normal at rest. Patient did endorse some pre-syncopal symptoms and weakness when attempting to ambulate into the bathroom this morning. He did ask for assistance back to bed out of fear he would pass out. Denies any chest pain, pressure, palpitations. endorses good appetite this am. Review of telemetry overnight shows SR with PVC's rates 70's-90's with no acute events. Notes, labs, vitals and diagnostics reviewed. Review of Systems Review of Systems: All systems reviewed & are unremarkable except as noted in HPI & below Physical Exam Constitutional: WD/WN, vitals as above + thin Neck: normal visual inspection and trachea midline Respiratory: normal respiratory effort, lungs clear to auscultation Cardiovascular: RRR, no murmur, no edema Vessels: no JVD Extremities: no edema Skin: no rashes, warm and dry Psychiatric: A+Ox3, euthymic affect Results & Data Vital Signs (Past 12 Hours) Vital Signs Temp Pulse Pulse Resp BP Pulse Ox Pulse Ox 07/25/23 07:42 78 07/25/23 07:40 36.9 C 84 14 106/66 96 07/25/23 07:37 96 07/25/23 02:38 36.8 C 76 18 119/69 96 07/25/23 00:53 117 H 07/24/23 22:25 36.7 C 79 16 139/74 95 O2 Del Method O2 Del Method 07/25/23 07:42 07/25/23 07:40 Room Air 01/30/24 07:37 Room Air 07/25/23 02:38 Room Air 07/25/23 00:53 07/24/23 22:25 Room Air Laboratory Results Cardiac Enzymes 07/24/23 07/24/23 Range/Units 16:51 23:01 Troponin I High Sens 52.5 H* D 33.8 H D (0-20) pg/ml CBC 07/25/23 Range/Units 05:26 WBC 7.20 (4.8-10.8) K/ul RBC 3.91 L (4.70-6.10) M/uL Hgb 12.5 L (14.0-18.0) g/dl Hct 35.5 L (42.0-52.0) % Plt Count 179 (130-400) K/uL Comprehensive Metabolic Panel 07/25/23 Range/Units 05:26 Sodium 135 L (136-145) mmol/L Potassium 3.6 (3.5-5.1) mmol/L Chloride 103 (98-107) mmol/L Carbon Dioxide 26 (21-32) mmol/L BUN 15 (6-23) mg/dl Creatinine 0.83 (0.6-1.4) mg/dl Glucose 99 (70-99(Fasting)) mg/dl Calcium 8.3 L (8.6-10.3) mg/dl Intake and Output 07/24/23 07/25/23 07/25/23 22:59 06:59 14:59 Intake Total 350 / 2615 1265 / 2615 100 / 100 Output Total 800 / 801 550 / 550 Balance -450 / 1814 1265 / 1814 -450 / -450 Intake: IV 1115 / 2115 100 / 100 Magnesium Sulfate / D5w 1 gm In 100 / 100 100 ml @ 50 mls/hr IV ONE ONE Rx#:[id number] Sodium Chloride 0.9% 1,000 ml @ 1115 / 1115 100 mls/hr IV .Q10H [facility] Rx#: [id number] Oral 350 / 500 150 / 500 Output: Urine 800 / 800 550 / 550 Other: # Unmeasured Voids 1 Weight 71.4 kg Diagnostic Findings EKG SB with PAC Rate 54 bpm Echocardiogram 07/24/23 Normal Left ventricle size LVEF 65-70% Grade I diastolic dysfunction No significant valvular pathology. (1) Syncope Syncope type: unspecified Qualified Code(s): R55 - Syncope and collapse
[2023-07-25] MEDS ORDERED: NON-FORMULARY MEDICATION (Riboflavin (Vitamin B2) 400 mg Tablet) PO SCH (09:00)
[2023-07-25] MEDS: CARBIDOPA/LEVODOPA 1 EACH CAPSULE.ER PO SCH ×4 (11:08→21:07)
[2023-07-25] MEDS: RASAGILINE MESYLATE 1 MG TAB PO SCH (11:08)
[2023-07-25] MEDS: CHOLECALCIFEROL 25 MCG (1000 UNITS) TAB PO SCH (11:09)
[2023-07-25] MEDS: ASPIRIN 81 MG ECTAB PO SCH (11:09)
[2023-07-25] MEDS: MAGNESIUM OXIDE 400 MG TAB PO SCH (11:10)
--- NOTE | 2023-07-25 11:23 | Electrocardiogram Report ---
Test Reason : Blood Pressure : / mmHG Vent. Rate : 054 BPM Atrial Rate : 054 BPM P-R Int : 148 ms QRS Dur : 092 ms QT Int : 462 ms P-R-T Axes : 020 000 046 degrees QTc Int : 438 ms Sinus bradycardia with Premature atrial complexes Otherwise normal ECG When compared with ECG of 24-JUL-2023 06:09, Premature atrial complexes are now Present Confirmed by Sumanth Tineo ([id number]) on 07/25/2023 11:23:42 AM Referred By: REFERRED SELF Confirmed By:Sumanth Tineo
--- NOTE | 2023-07-25 12:45 | Hospitalist Progress Note ---
Date of Service July 25, 2023 Assessment & Plan (1) Syncope: Plan: Secondary to postural hypotension Complicated by recent use of Sudafed and Delsym for cough Significant orthostasis noted with blood pressure dropped down to 75/47 when standing from 117/70 lying down with significant symptoms of dizziness Appreciate cardiology input and recommendation Will add mild protein 2.5 mg 3 times daily to start with Advised to drink more fluid and keep himself hydrated Strongly advised to take time to initiate any activities especially while sitting and or lying down PT/OT evaluation. (2) Parkinson disease: Plan: Chronic, at baseline. Patient reports orthostatic hypotension at home chronically and is on rasagiline and Rytary. He is followed by Neurology at [facility] regularly. Today he is orthostatic when going sitting to standing as HR jumped from 64 to 105 and he became too lightheaded to remain standing. Agree with cardiology on giving some IVF overnight in setting of recent URI. However, this is an ongoing issue for him. Cont current supporting treatments to avoid falls/syncope such as compression stockings. No acute symptoms of Parkinson disease except orthostasis as above (3) URI (upper respiratory infection): Plan: Recent URI symptoms x 3 days as noted above taking sudafed and Delsym OTC. Both illness and medications may have contributed to the fall directly or indirectly through possibly triggering his tachycardia. It appears he is symptomatic when he gets SVT in the past, and he is able to break this with increasing vagal tone. He denies any palpitations or issues like this in the last couple of days. Avoid Sudafed/Delsym at this time. Offered additional supportive care, however, patient declined need. Nasal swab negative for flu/covid/rsv Sudafed/Delsym may have initiated more orthostatic changes blood pressure (4) Elevated troponin: Plan: Unclear etiology, but flat trend without rise. No chest pain or concern for acute ischemia on EKG today. Consult cards, echo now. Likely demand ischemia, but isn't clear. No EKG changes of any significance Serial troponins are negative for any ACS Echo of the heart showed normal LV wall thickness, LV wall motion is normal, EF 65 to 70%, and grade 1 diastolic dysfunction DVT proph: Lovenox Full Code Dispo-telemetry Admission and Anticipated Discharge Date Admission Date: July 24, 2023 Subjective 07/25/2023 The patient was seen and examined in medical telemetry unit He has Parkinson disease and has been complaining of dizziness and syncopal episode for the last 2 to 3 years Has had 1 recently while she was in the toilet and had a loss of consciousness for about 40 minutes as per the patient No fall Denies any other symptoms Review of Systems Review of Systems: All systems reviewed and are unremarkable except as noted below Physical Exam Physical Exam: Lying in bed comfortably Constitutional: + ill appearing and average body habitus Eyes: PERRL, conjunctivae normal, anicteric sclerae ENMT: external ear and nose normal, oropharynx normal Neck: trachea midline, no thyromegaly Respiratory: no respiratory distress Auscultation: lungs clear to auscultation bilaterally Cardiovascular: Rate/Rhythm: regular rate and regular rhythm; not tachycardic Heart Sounds: normal S1 and normal S2; no murmur Extremities: no edema Gastrointestinal (Abdomen): Inspection/Auscultation: normal bowel sounds; abdomen not distended Percussion/Palpation: abdomen soft; abdomen nontender Musculoskeletal: No acute arthritis involving any of the joint Neurologic: normal touch/pain/proprioception and moves all extremities; no focal motor deficits Psychiatric: A+Ox3, euthymic affect Lymphatic: no cervical or axillary lymphadenopathy Results & Data Results & Data Vital Signs (Past 12 Hours) Vital Signs Temp Pulse Pulse Resp BP Pulse Ox Pulse Ox 07/25/23 12:08 36.4 C L 16 126/70 96 07/25/23 07:42 78 07/25/23 07:40 36.9 C 84 14 106/66 96 07/25/23 07:37 96 07/25/23 02:38 36.8 C 76 18 119/69 96 07/25/23 00:53 117 H O2 Del Method O2 Del Method 07/25/23 12:08 Room Air 07/25/23 07:42 07/25/23 07:40 Room Air 07/25/23 07:37 Room Air 07/25/23 02:38 Room Air 07/25/23 00:53 Laboratory Results Short CBC 07/25/23 Range/Units 05:26 WBC 7.20 (4.8-10.8) K/ul Hgb 12.5 L (14.0-18.0) g/dl Hct 35.5 L (42.0-52.0) % Plt Count 179 (130-400) K/uL BMP 07/25/23 05:26 Sodium 135 L Potassium 3.6 Chloride 103 Carbon Dioxide 26 BUN 15 Creatinine 0.83 Glucose 99 Calcium 8.3 L Medications Administered Current Inpatient Medications Acetaminophen (Acetaminophen 325 Mg Tab) 650 mg PO Q4H PRN PRN Reason: Pain or Fever Stop: 08/23/23 09:31 Aspirin (Aspirin 81 Mg Ectab) 81 mg PO DAILY SUAD Stop: 08/24/23 08:59 Last Admin: 07/25/23 11:09 Dose: 81 mg Carbidopa/Levodopa (Carbidopa/Levodopa 1 Each Capsule.Er) 1 each PO QID@0700,1200,1700,2200 SUAD Stop: 08/24/23 12:59 Last Admin: 07/25/23 11:08 Dose: 1 each Clonazepam (Clonazepam 1 Mg Tab) 1 mg PO HS SUAD Stop: 08/23/23 20:59 Last Admin: 07/24/23 20:39 Dose: 1 mg Magnesium Oxide (Magnesium Oxide 400 Mg Tab) 400 mg PO DAILY SUAD Stop: 08/24/23 08:59 Last Admin: 07/25/23 11:10 Dose: 400 mg Midodrine (Midodrine Hcl 2.5 Mg Tab) 2.5 mg PO TID@0800,1200,1700 SUAD Stop: 08/24/23 16:59 Polyethylene Glycol (Polyethylene (Miralax) 17 Gm Pack) 17 gm PO DAILY PRN PRN Reason: Constipation Stop: 08/23/23 09:31 Rasagiline (Rasagiline Mesylate 1 Mg Tab) 1 mg PO DAILY SUAD Stop: 08/24/23 00:00 Last Admin: 07/25/23 11:08 Dose: 1 mg Vitamin D (Cholecalciferol 1,000 Units 25 Mcg Tab) 2,000 units PO DAILY SUAD Stop: 08/24/23 08:59 Last Admin: 07/25/23 11:09 Dose: 2,000 units (1) Syncope Syncope type: unspecified Qualified Code(s): R55 - Syncope and collapse
[2023-07-25] MEDS: MIDODRINE HCL 2.5 MG TAB PO SCH (16:40)
[2023-07-25] MEDS: clonazePAM 1 MG TAB PO SCH (21:09)
[2023-07-26 06:09] LABS: Calcium 8.7 mg/dl (8.6-10.3); Creatinine Clr Calc Pharmacy 74.1 ml/min; Est GFR (African American) 94.3 ml/min; Est GFR (Non-African American) 81.3 ml/min; Magnesium 2.1 mg/dl (1.7-2.4); Potassium 3.8 mmol/L (3.5-5.1)
[2023-07-26] MEDS: CARBIDOPA/LEVODOPA 1 EACH CAPSULE.ER PO SCH ×3 (06:16→16:17)
--- NOTE | 2023-07-26 08:41 | Cardiology Progress Note ---
Date of Service July 26, 2023 Assessment & Plan (1) Syncope: (2) Elevated troponin: (3) Acute hypotension: Plan Assessment: 68 year-old male with 2 reported syncopal episodes in the setting of an acute URI and hypotension. Plan: 1. Syncope -two reported episodes over the past 24 hours prior to admission.None since time of admission. patient has been having low blood pressure home readings and has known history of orthostatic hypotension. -Obtain orthostatic vital signs, positive this morning, had not received Midodrine yet. continue to montior. -Recommend IV fluid resuscitation in the setting of an acute illness. -CTA chest is negative for a P.E., no focal lung consolidation to suggest pneumonia; however, there is a presence of a 3mm ground glass nodule in the left lung apex -Echocardiogram shows normal LVEF, slightly hyperdynamic 65-70% likely in the setting of dehydration due to acute illness. No wall motion abnormalities, no valvular disease. 2. Elevated Troponin -No acute EKG changes. -No events on telemetry -Denies any chest pain,pressure, palpitations. -Echocardiogram shows normal LVEF, no wall motion abnormalities. 3. Acute hypotension -Known history of orthostatic hypotension in the past and discontinued beta deborah therapy s/t intolerance -Rest BP during examination 115/71 -Not currently on any anti-hypertensive therapies. -Takes rasagiline at home for treatment of Parkinson which is known to cause dizziness -Echocardiogram with no significant changes or abnormalities. Fluid status has improved. BP remains low normal, slight improvement, but does have pre- syncopal symptoms and likely a drop in BP with sudden position changes. -tolerating Midodrine at this time. -Plan is to continue midodrine, encourage hydration and assess patient's response with activity. Encourage patient to walk in halls with assistance of staff. Continue to check orthostatic vs. If resolved, and patient is tolerating activity, will be appropriate for discharge from a cardiac perspective. He has a follow up appt already scheduled with cardiology this Monday07/28/23, encouraged to keep. Case has been discussed with Dr. Desai. Further recommendations regarding plan of care as per his assessment. I spent a total of 30 minutes on the date of service in preparation, delivery, documentation of the care provided to the patient excluding any time spent in the performance of separately billed services. LISSA Rosaleser Cardiology [facility] Admission and Anticipated Discharge Date Admission Date: July 24, 2023 Supervising Physician Co-Signing Physician Notes I discussed the case with LISSA Ray agree with findings and plans as documented. Patient discharged prior to me having the opportunity to examine him in person today. Randall Desai DO Subjective 07/26/23: Patient seen and examined in follow up. patient is sitting up in bed feeling well this morning. He had received one dose of Midodrine thus far. Positive orthostatic VS this morning. Denies chest pain, pressure, palpitations, no presyncope or syncope since admission. Review of telemetry overnight shows SR with PVC's rates 70's-80's with no acute events. Notes, labs, vitals and diagnostics reviewed. Review of Systems Review of Systems: All systems reviewed & are unremarkable except as noted in HPI & below Physical Exam Constitutional: WD/WN, vitals as above well developed and + thin Neck: normal visual inspection and trachea midline Respiratory: normal respiratory effort, lungs clear to auscultation Cardiovascular: RRR, no murmur, no edema Vessels: dorsalis pedis pulses present; no JVD Extremities: no edema Skin: no rashes, warm and dry Psychiatric: A+Ox3, euthymic affect Results & Data Vital Signs (Past 12 Hours) Vital Signs Temp Pulse Pulse Resp BP Pulse Ox O2 Del Method 07/26/23 08:34 70 07/26/23 05:54 92 H 07/26/23 04:00 36.6 C 74 18 115/69 97 Room Air 07/25/23 22:00 36.6 C 81 20 143/81 H 96 Room Air Laboratory Results Comprehensive Metabolic Panel 07/26/23 Range/Units 05:14 Sodium 136 (136-145) mmol/L Potassium 3.8 (3.5-5.1) mmol/L Chloride 103 (98-107) mmol/L Carbon Dioxide 27 (21-32) mmol/L BUN 19 (6-23) mg/dl Creatinine 0.95 (0.6-1.4) mg/dl Glucose 94 (70-99(Fasting)) mg/dl Calcium 8.7 (8.6-10.3) mg/dl Intake and Output 01/30/24 01/31/24 01/31/24 22:59 06:59 14:59 Intake Total 120 / 1800 100 / 1800 Output Total 425 / 1675 500 / 1675 Balance -305 / 125 -400 / 125 Intake: Oral 120 / 700 100 / 700 Output: Urine 425 / 1675 500 / 1675 Other: # Unmeasured Voids 1 Weight 71.4 kg Diagnostic Findings EKG today, self reviewed. NSR rate 80bpm. (1) Syncope Syncope type: unspecified Qualified Code(s): R55 - Syncope and collapse
[2023-07-26] MEDS: ASPIRIN 81 MG ECTAB PO SCH (08:52)
[2023-07-26] MEDS: RASAGILINE MESYLATE 1 MG TAB PO SCH (08:52)
[2023-07-26] MEDS: MIDODRINE HCL 2.5 MG TAB PO SCH ×3 (08:52→16:17)
[2023-07-26] MEDS: CHOLECALCIFEROL 25 MCG (1000 UNITS) TAB PO SCH (08:52)
[2023-07-26] MEDS: MAGNESIUM OXIDE 400 MG TAB PO SCH (08:52)
--- NOTE | 2023-07-26 13:57 | Hospitalist Progress Note ---
Date of Service July 26, 2023 Assessment & Plan (1) Syncope: Plan: Secondary to postural hypotension due to Neurogenic complication of Parkinson's disease Complicated by recent use of Sudafed and Delsym for cough Significant orthostasis noted with blood pressure dropped down to 75/47 when standing from 117/70 lying down with significant symptoms of dizziness Appreciate cardiology input and recommendation Will add mild protein 2.5 mg 3 times daily to start with Advised to drink more fluid and keep himself hydrated Strongly advised to take time to initiate any activities especially while sitting and or lying down PT/OT evaluation. He has been feeling a lot better and the orthostatic changes have improved Blood pressure was 106/56 lying, 96/62 is sitting and 93/58 standing Patient did not feel dizziness He will be discharged home this afternoon with a follow-up with a professor of spanish as an outpatient (2) Parkinson disease: Plan: Chronic, at baseline. Patient reports orthostatic hypotension at home chronically and is on rasagiline and Rytary. He is followed by Neurology at [facility] regularly. Today he is orthostatic when going sitting to standing as HR jumped from 64 to 105 and he became too lightheaded to remain standing. Agree with cardiology on giving some IVF overnight in setting of recent URI. However, this is an ongoing issue for him. Cont current supporting treatments to avoid falls/syncope such as compression stockings. No acute symptoms of Parkinson disease except orthostasis as above (3) URI (upper respiratory infection): Plan: Recent URI symptoms x 3 days as noted above taking sudafed and Delsym OTC. Both illness and medications may have contributed to the fall directly or indirectly through possibly triggering his tachycardia. It appears he is symptomatic when he gets SVT in the past, and he is able to break this with increasing vagal tone. He denies any palpitations or issues like this in the last couple of days. Avoid Sudafed/Delsym at this time. Offered additional supportive care, however, patient declined need. Nasal swab negative for flu/covid/rsv Sudafed/Delsym may have initiated more orthostatic changes blood pressure Advised not to take anymore Sudafed/Delsym for cough (4) Elevated troponin: Plan: Unclear etiology, but flat trend without rise. No chest pain or concern for acute ischemia on EKG today. Consult cards, echo now. Likely demand ischemia, but isn't clear. No EKG changes of any significance Serial troponins are negative for any ACS Echo of the heart showed normal LV wall thickness, LV wall motion is normal, EF 65 to 70%, and grade 1 diastolic dysfunction Normal cardiac symptoms DVT proph: Afsaneh Full Code Dispo-telemetry Admission and Anticipated Discharge Date Admission Date: July 24, 2023 Subjective 07/25/2023 The patient was seen and examined in medical telemetry unit He has Parkinson disease and has been complaining of dizziness and syncopal episode for the last 2 to 3 years Has had 1 recently while she was in the toilet and had a loss of consciousness for about 40 minutes as per the patient No fall Denies any other symptoms 07/26/2023 The patient was seen and examined in medical telemetry unit He has been feeling little better today after starting midodrine He will likely be discharged this afternoon Review of Systems Review of Systems: All systems reviewed and are unremarkable except as noted below Physical Exam Physical Exam: Lying in bed comfortably Constitutional: + ill appearing and average body habitus Eyes: PERRL, conjunctivae normal, anicteric sclerae ENMT: external ear and nose normal, oropharynx normal Neck: trachea midline, no thyromegaly Respiratory: no respiratory distress Auscultation: lungs clear to auscultation bilaterally Cardiovascular: Rate/Rhythm: regular rate and regular rhythm; not tachycardic Heart Sounds: normal S1 and normal S2; no murmur Extremities: no edema Gastrointestinal (Abdomen): Inspection/Auscultation: normal bowel sounds; abdomen not distended Percussion/Palpation: abdomen soft; abdomen nontender Neurologic: normal touch/pain/proprioception and moves all extremities; no focal motor deficits Psychiatric: A+Ox3, euthymic affect Lymphatic: no cervical or axillary lymphadenopathy Results & Data Results & Data Vital Signs (Past 12 Hours) Vital Signs Temp Pulse Pulse Resp BP Pulse Ox O2 Del Method 07/26/23 12:01 36.7 C 69 16 115/71 94 Room Air 07/26/23 08:54 74 16 96/62 L 96 Room Air 07/26/23 08:34 70 07/26/23 05:54 92 H 07/26/23 04:00 36.6 C 74 18 115/69 97 Room Air Laboratory Results [facility] 07/26/23 05:14 Sodium 136 Potassium 3.8 Chloride 103 Carbon Dioxide 27 BUN 19 Creatinine 0.95 Glucose 94 Calcium 8.7 Medications Administered Current Inpatient Medications Acetaminophen (Acetaminophen 325 Mg Tab) 650 mg PO Q4H PRN PRN Reason: Pain or Fever Stop: 08/23/23 09:31 Aspirin (Aspirin 81 Mg Ectab) 81 mg PO DAILY [facility] Stop: 08/24/23 08:59 Last Admin: 07/26/23 08:52 Dose: 81 mg Carbidopa/Levodopa (Carbidopa/Levodopa 1 Each Capsule.Er) 1 each PO QID@0700,1200,1700,2200 SUAD Stop: 08/24/23 12:59 Last Admin: 07/26/23 12:02 Dose: 1 each Clonazepam (Clonazepam 1 Mg Tab) 1 mg PO HS [facility] Stop: 08/23/23 20:59 Last Admin: 07/25/23 21:09 Dose: 1 mg Magnesium Oxide (Magnesium Oxide 400 Mg Tab) 400 mg PO DAILY [facility] Stop: 08/24/23 08:59 Last Admin: 07/26/23 08:52 Dose: 400 mg Midodrine (Midodrine Hcl 2.5 Mg Tab) 2.5 mg PO TID@0800,1200,1700 [facility] Stop: 08/24/23 16:59 Last Admin: 07/26/23 12:02 Dose: 2.5 mg Polyethylene Glycol (Polyethylene (Miralax) 17 Gm Pack) 17 gm PO DAILY PRN PRN Reason: Constipation Stop: 08/23/23 09:31 Rasagiline (Rasagiline Mesylate 1 Mg Tab) 1 mg PO DAILY [facility] Stop: 08/24/23 00:00 Last Admin: 07/26/23 08:52 Dose: 1 mg Vitamin D (Cholecalciferol 1,000 Units 25 Mcg Tab) 2,000 units PO DAILY [facility] Stop: 08/24/23 08:59 Last Admin: 07/26/23 08:52 Dose: 2,000 units (1) Syncope Syncope type: unspecified Qualified Code(s): R55 - Syncope and collapse
--- NOTE | 2023-07-26 15:12 | Electrocardiogram Report ---
Test Reason : Blood Pressure : / mmHG Vent. Rate : 080 BPM Atrial Rate : 080 BPM P-R Int : 146 ms QRS Dur : 088 ms QT Int : 398 ms P-R-T Axes : 060 -03 049 degrees QTc Int : 459 ms Normal sinus rhythm Normal ECG When compared with ECG of 25-JUL-2023 04:49, Premature atrial complexes are no longer Present Vent. rate has increased BY 26 BPM Confirmed by Sumanth Tineo ([id number]) on 07/26/2023 3:11:40 PM Referred By: REFERRED SELF Confirmed By:Sumanth Tineo
--- NOTE | 2023-07-27 07:55 | Discharge Summary ---
Date of Service July 27, 2023 Admission HPI Per Admitting Provider 68 yo M with known h/o Parkinson's disease presents after two syncopal episodes in the past 24 hours. Historically patient was seen by [facility] cardiology in September 2022 for recurrent episodes of chest discomfort and tachycardia occurring the month prior. Symptoms were lasting 10 seconds and spontaneously resolved after a deep breath without recurrence. He had had an isolated episode of syncope at that time which was prompted with standing quickly and climbing stairs. He was wearing compression stockings daily. Reported a family history of brother and mother who both required ablation for arrhythmia. EKG at that time revealed sinus rhythm. During an admission to [facility] in 02/25/2022 tachycardia was noted with a heart rate of 180 bpm while in the ER but was not captured on EKG before he converted to sinus rhythm. A 7-day Zio monitor was performed in response to this with predominant underlying sinus rhythm and 14 SVT runs occurring. He has a history of echocardiogram in February 2022 which was normal. He underwent an stress echo December 2019 which was negative for inducible ischemia with a normal heart rate response and blood pressure response to exercise. Patient has notably been intolerant to beta-deborah therapy in the past. Continued observation was recommended with consideration for loop recorder implant if symptoms became more frequent or associated with syncope or near syncope in the future. He takes low-dose aspirin. Reports lost consciousness yesterday morning at 0400 while walking into the bathroom. He felt lightheaded prior to LOC and woke up on the floor and was clear. Unsure if he hit his head but reported a headache even prior to the fall and had a RAYMUNDO all night last night. Reports being ill for three days, cough, runny nose with productive mucous, no fevers, no chills. He was taking Sudafed OTC-took two small red pills BID and one ER Sudafed yesterday--drinks caffeine--two cups of tea/day. Also had generic Delsym one dose last night prior to to sleep. This medication is nondrowsy and reportedly didn't sedate him. However, this morning he woke up around 5a and sat up in bed feeling dizzy and queasy. He waited a few minutes and decided to go urinate (he had successfully made it to the bathroom twice overnight without issue already). He sat down on the potty to urinate and was not straining but fet lightheaded with sudden collapse after sitting down. reports his eyes remained open but he was not responding to her for about 4 minutes. Admission Exam Per Admitting Provider Physical Exam: CONSTITUTIONAL: WNWD, vitals as above, generally well-appearing, NAD EYES: pupils are round and equal bilaterally, normal conjunctivae, no scleral icterus, ENT: external ear and nose normal, MMM NECK: trachea midline RESPIRATORY: clear to auscultation bilaterally, no crackles, rales or wheezes, normal respiratory effort CARDIOVASCULAR: regular rate and rhythm, S1 and 2 heard without murmurs, gallops or rubs, no JVD, no peripheral edema CHEST: inspection of chest was normal GASTROINTESTINAL: soft, nontender, ND, no guarding MUSCULOSKELETAL: strength 5/5 throughout, head is normocephalic and atraumatic SKIN: warm and dry NEUROLOGIC: CN 2-12 grossly intact, no sensory deficit, normal cognition, normal speech, no tremor PSYCHIATRIC: alert cooperative and oriented to person, place and time. Euthymic mood, makes good eye contact, language grossly intact, recent and remote memory grossly intact. orthostatics: Lying 132/72 HR 62 Sitting 126/70 HR 64 Standing: became symptomatic and had to sit down immediately, HR up to 105/115. Principal Diagnosis Recurrent syncope secondary to neurogenic complication of Parkinson disease, postural hypotension Discharge Exam Lying in bed comfortably Constitutional + ill appearing and average body habitus Eyes PERRL, conjunctivae normal, anicteric sclerae ENMT external ear and nose normal, oropharynx normal Neck trachea midline, no thyromegaly Respiratory no respiratory distress Auscultation: lungs clear to auscultation bilaterally Cardiovascular Rate/Rhythm: regular rate and regular rhythm; not tachycardic Heart Sounds: normal S1 and normal S2; no murmur Extremities: no edema Gastrointestinal (Abdomen) Inspection/Auscultation: normal bowel sounds; abdomen not distended Percussion/Palpation: abdomen soft; abdomen nontender Neurologic normal touch/pain/proprioception and moves all extremities; no focal motor deficits Psychiatric A+Ox3, euthymic affect Lymphatic no cervical or axillary lymphadenopathy Discharge Data Allergies Allergy/AdvReac Type Severity Reaction Status Date / Time bee venom protein (honey bee) Allergy Unknown SWELLING Verified 04/20/16 10:40 No Known Drug Allergies Allergy Unknown NKDA Verified 04/20/16 10:40 Consultations 07/24/23 07:41 ED Decision to Admit Stat 07/24/23 11:30 Consult Cardiology Routine Ordered Studies 07/24/23 07:08 CT head/brain wo con Stat 07/24/23 07:40 CT angio chest PE protocol Stat Hospital Course (1) Syncope: Secondary to postural hypotension due to Neurogenic complication of Parkinson's disease Complicated by recent use of Sudafed and Delsym for cough Significant orthostasis noted with blood pressure dropped down to 75/47 when standing from 117/70 lying down with significant symptoms of dizziness Appreciate cardiology input and recommendation Will add mild protein 2.5 mg 3 times daily to start with Advised to drink more fluid and keep himself hydrated Strongly advised to take time to initiate any activities especially while sitting and or lying down PT/OT evaluation. He has been feeling a lot better and the orthostatic changes have improved Blood pressure was 106/56 lying, 96/62 is sitting and 93/58 standing Patient did not feel dizziness He will be discharged home this afternoon with a follow-up with a transportation specialist as an outpatient (2) Parkinson disease: Chronic, at baseline. Patient reports orthostatic hypotension at home chronically and is on rasagiline and Rytary. He is followed by Neurology at [facility] regularly. Today he is orthostatic when going sitting to standing as HR jumped from 64 to 105 and he became too lightheaded to remain standing. Agree with cardiology on giving some IVF overnight in setting of recent URI. However, this is an ongoing issue for him. Cont current supporting treatments to avoid falls/syncope such as compression stockings. No acute symptoms of Parkinson disease except orthostasis as above (3) URI (upper respiratory infection): Recent URI symptoms x 3 days as noted above taking sudafed and Delsym OTC. Both illness and medications may have contributed to the fall directly or indirectly through possibly triggering his tachycardia. It appears he is symptomatic when he gets SVT in the past, and he is able to break this with increasing vagal tone. He denies any palpitations or issues like this in the last couple of days. Avoid Sudafed/Delsym at this time. Offered additional supportive care, however, patient declined need. Nasal swab negative for flu/covid/rsv Sudafed/Delsym may have initiated more orthostatic changes blood pressure Advised not to take anymore Sudafed/Delsym for cough (4) Elevated troponin: Unclear etiology, but flat trend without rise. No chest pain or concern for acute ischemia on EKG today. Consult cards, echo now. Likely demand ischemia, but isn't clear. No EKG changes of any significance Serial troponins are negative for any ACS Echo of the heart showed normal LV wall thickness, LV wall motion is normal, EF 65 to 70%, and grade 1 diastolic dysfunction Normal cardiac symptoms DVT proph: Lovenox Full Code Dispo-telemetry Total Time Total Time Spent Total Time Spent (In Minutes): 35 minutes Discharge Plan Discharge Items Patient Disposition: Home - Self-Care Reason For Visit: SYNCOPE Discharge Diagnosis: Recurrent syncope secondary to neurogenic complication of Parkinson disease, postural hypotension Condition on Discharge: Good Activity: Resume your previous activity Non-emergency contact: Primary Care Provider Call non-emergency contact if: you have any medication questions and your symptoms worsen Follow-up/Referrals: Stephane Mabry, DO [Primary Care Provider] - (Your doctor's office will give you a call with an appointment within 7 days) Diet: Regular Addtl Attending Provider Instructions: Please take precautions to avoid falls Take your time to initiate any activities Try to drink more fluid Take your medications as advised Please keep appointments with your healthcare provider Try to avoid Sudafed/Delsym type of medications to suppress cough Pending Studies at Discharge: No Stand-Alone Forms: My [facility] [employer], Smoking Cessation Medications and DC Order Prescriptions: New midodrine 2.5 mg Tablet 2.5 mg PO TID@0800,1200,1700 Qty: 90 0RF Continued rasagiline 1 mg tablet 1 mg PO DAILY cholecalciferol (vitamin D3) [Vitamin D3] 50 mcg (2,000 unit) Capsule 2,000 unit PO DAILY riboflavin (vitamin B2) 400 mg Tablet 400 mg PO DAILY magnesium oxide 400 mg magnesium Tablet 400 mg PO DAILY clonazepam 1 mg tablet 1 mg PO HS aspirin 81 mg Tablet,Delayed Release (Dr/Ec) 81 mg PO DAILY Rytary 48.75-195 mg capsule, extended release 1 cap PO QID Rx Instructions: 0700, 1200, 1700, 2200 Discharge Orders: Discharge Order (Routine); Ordered 07/26/23 Ordered By: Lesley Hinkle Admission Data Admit Date/Time: 07/24/23 09:01 Attending Provider: Lesley Hinkle Admit Provider: Saige Godinez Primary Care Provider: Stephane Mabry Other Providers: Sowmya Lara; Randall Desai; Saige Godinez Other Interventions: Discharge Summary Assessment (RN) Last Done: 07/26/23 16:03
== END 2023-07-26 16:55 | disposition home or self-care (01) ==
LOC: ED 06:05 → EDINP 09:01 → INTOOBSV 09:01 → SUATTDRO 09:01 → 2N 09:27